=== PATIENT | male | born 1955 | race Caucasian/White ===

== ENCOUNTER 2019-05-29 16:11 | Outpatient (CLI) | payer OTHER, SELFPAY ==
--- NOTE | ~2019-05-29 | XR_ITS ---
EXAMINATION: XR chest 2V EXAM DATE: 05/29/2019 16:32 INDICATION: Cough. Hypertension. TECHNIQUE: Frontal and lateral projections of the chest obtained and reviewed. Comparison is made to prior examination from 12/24/2015. FINDINGS: The lungs are clear. There are no pleural effusions. The cardiomediastinal silhouette is within normal limits. There is no pneumothorax suspected. The bones and soft tissues are unremarkab le. Resolution of previously seen right-sided airspace disease. IMPRESSION: No acute cardiopulmonary findings. Reviewed, dictated and finalized at location B. R SEWING MACHINE OPERATOR
== END 2019-05-29 16:12 | disposition home or self-care (01) ==
LOC: ANHIMG 16:13
PROVIDERS: PCP Family Medicine; Visit Provider Family Medicine
DX: R05 Cough (principal)
CPT/HCPCS: 71046

== ENCOUNTER 2021-05-26 07:38 | Outpatient (CLI) | payer MEDICARE, SELFPAY ==
--- NOTE | ~2021-05-26 | US_ITS ---
EXAMINATION: US [facility] DATE: 05/26/2021 08:26 INDICATION: Abdominal aortic aneurysm screening TECHNIQUE: Grayscale, color Doppler, and pulsed Doppler images of the aorta and common iliac arteries were obtained. COMPARISON: CT abdomen pelvis dated 12/19/2015 FINDINGS: The proximal aorta measures 2.2 cm maximal AP diameter. The mid aorta measures 2.3 cm. Fusiform aneur ysm in the distal aorta which measures up to 3.9 cm in maximal AP diameter. The right common iliac ar luz maria measures 2.2 cm. The left common iliac artery measures 1.6 cm. IMPRESSION: 1. Fusiform infrarenal abdominal aortic aneurysm measuring up to 3.9 cm in maximal diameter. Reviewed, dictated and finalized at location A. RVISOR ENROBING IMPRESSION: 1. Fusiform infrarenal abdominal aortic aneurysm measuring up to 3.9 cm in maxi mal diameter.
--- NOTE | ~2021-05-26 | CT_ITS ---
EXAMINATION: CT lung screening DATE: 05/26/2021 08:05 INDICATION: Personal history of nicotine dependence TECHNIQUE: Computed tomography (CT) of the chest was performed without intravenous contrast. The dose -length product was 187.08 mGy-cm. Automated exposure control and iterative reconstruction technique were employed. COMPARISON: CT dated 03/12/2016 FINDINGS: There is atherosclerosis of the aorta and coronary arteries. Heart size normal. No signific ant pleural or pericardial effusion. There are calcified mediastinal lymph nodes, consistent with chr onic granulomatous disease. There are scattered calcified pulmonary nodules. The upper abdomen is unr emarkable. There is right lower lobe atelectasis/scarring with associated bronchiectasis, improved co mpared with prior CT. There are a few small 1-2 mm nodules in both lungs, not clearly calcified, like ly benign. No endobronchial lesions. No focal airspace disease. Mild thoracic spondylosis. Mild accen tuated thoracic kyphosis. IMPRESSION: 1. Lung-RADS category 2: Benign appearance or behavior. Continue annual screening with noncontrast lo w-dose chest CT in 12 months. Reviewed, dictated and finalized at location B. INE CARTON MARKER IMPRESSION: 1. Lung-RADS category 2: Benign appearance or behavior. Continue annual screeni ng with noncontrast low-dose chest CT in 12 months.
== END 2021-05-26 07:39 | disposition home or self-care (01) ==
LOC: ANHIMG 07:39
PROVIDERS: PCP Family Medicine; Visit Provider Physician Assistant
DX: Z12.2 Encounter for screening for malignant neoplasm of respiratory organs (principal); Z87.891 Personal history of nicotine dependence; Z13.6 Encounter for screening for cardiovascular disorders; I71.4 Abdominal aortic aneurysm, without rupture
CPT/HCPCS: 71271; 76706

== ENCOUNTER → 2021-09-11 14:36 | Outpatient (CLI) | payer MEDICARE, SELFPAY ==
--- NOTE | ~2021-09-11 | XR_ITS ---
EXAMINATION: XR chest 2V 09/11/2021 14:46 INDICATION: Cough PROCEDURE: PA and lateral views of the chest COMPARISON: No prior studies for comparison. FINDINGS: The lungs are clear. The cardiomediastinal silhouette is within normal limits. There are no pleural effusions. There is no pneumothorax suspected. IMPRESSION: 1: NO ACUTE CARDIOPULMONARY DISEASE. Reviewed, dictated and finalized at location B.
== END ==
PROVIDERS: PCP Family Medicine; Visit Provider Family Medicine
DX: R05.9 Cough, unspecified (principal)
CPT/HCPCS: 71046

== ENCOUNTER 2021-09-11 19:13 | Emergency (ER) | payer MEDICARE, SELFPAY ==
--- NOTE | ~2021-09-11 | CT_ITS ---
EXAMINATION: CTA chest PE protocol DATE: 09/11/2021 22:48 INDICATION: Left lower chest wall pain. History of pulmonary embolism 6 years ago. Patient states thi s feels the same as prior pulmonary embolus. TECHNIQUE: Computed tomography angiography (CTA) of the chest was performed with 100 mL Omnipaque-350 intravenous contrast timed to evaluate the pulmonary arteries. Coronal maximum intensity projection 3D-reconstructions were created by the technologist. Automated exposure control and iterative reconst ruction technique were employed. Exam dose: 456.84 mGy-cm total exam DLP. COMPARISON: 09/11/2021 PA and lateral chest 05/26/2021 CT lung screening 12/19/2015 CT pulmonary scan FINDINGS: There is diagnostic contrast enhancement of the pulmonary arteries and no evidence of pulmo nary embolism. No thoracic aortic aneurysm or dissection. Normal heart size. Coronary artery calcifications. No pericardial effusion. No hilar or mediastinal mass lesion or lymphadenopathy. There is chronic discoid scarring in the posterior right lower lobe and minimal atelectasis at the le ft lung base. No pulmonary infiltrate or consolidation or suspicious pulmonary mass lesion. No pleura l effusion. Small sliding hiatal hernia. Prominent degenerative disc disease at C5-6. There is mild degenerative spurring of the thoracic spin e. No suspicious osteolytic or osteoblastic lesions are noted. IMPRESSION: No evidence of pulmonary embolism Reviewed, dictated and finalized at Location A. Reviewed, dictated and finalized at location A.
[2021-09-11 19:28] VITALS: BP 169/92; PULSE 79; RESP 20; TEMP 36.6; O2SAT 97
--- NOTE | 2021-09-11 21:24 | ECG_ITS ---
Measurements Intervals [place] Rate: 66 P: 26 [place]: 177 QRS: -23 QRSD: 94 T: 22 QT: 410 QTc: 430 Interpretive Statements SINUS RHYTHM BORDERLINE LEFT AXIS DEVIATION [QRS AXIS < -20] ABNORMAL EKG NO PREVIOUS ECG AVAILABLE FOR COMPARISON Electronically Signed On 09-12-2021 13:44:09 CDT by Pk Quiles M.D.
[2021-09-11 21:30] VITALS: BP 165/97; PULSE 66; RESP 18; TEMP 36.8; O2SAT 98
--- NOTE | 2021-09-11 21:56 | ED.GENADULT ---
HPI - General Adult General Chief complaint: Unspecified Stated complaint: I think I have a blood clot Time Seen by Provider: 09/11/21 21:17 Source: patient History of Present Illness HPI narrative: Patient presents with left mid back pain. He is concerned that he has a blood clot. Patient reports he had similar symptoms approximately 6 years ago and being diagnosed with a PE was on anticoagulation. Reports a family history of coagulopathy. He thinks maybe he has a factor issue. His current symptoms started yesterday he noted them when blowing his nose and coughing causing a sharp pain on his left mid back. Denies any shortness of breath anterior chest pain denies any pain with deep inspiration reports last time he had a PE he had traveled to [place]. Reports he recently had a trip to [place]. Denies any recent stabilizations or surgeries. Related Data Home Medications Medication Instructions Recorded Confirmed aspirin 81 mg tablet,delayed 81 mg PO DAILY 02/16/19 06/23/21 release Allergies Allergy/AdvReac Type Severity Reaction Status Date / Time No Known Allergies Allergy Verified 09/11/21 19:32 Review of Systems Review of Systems: CONSTITUTIONAL: Denies fever, chills, or sweats. EYES: Denies visual changes, redness, or discharge. ENT: Denies rhinorrhea, congestion, sore throat, or otalgia. CARDIOVASCULAR: Denies chest pain, palpitations, or edema. RESPIRATORY: Denies cough or dyspnea. GASTROINTESTINAL: Denies abdominal pain, nausea, vomiting, or diarrhea. GENITOURINARY: Denies dysuria or hematuria. SKIN: Denies rash or itching. MUSCULOSKELETAL: Denies joint pain, or myalgia. NEUROLOGIC: Denies headache, numbness, dizziness, or weakness. PSYCHIATRIC: Denies anxiety or depression. All systems reviewed & are unremarkable except as noted in HPI and below PMFSH Past Medical History Medical History Abnormal colonoscopy (~07/13/07) Hepatitis C antibody test negative (01/21/17) Inguinal hernia Myocardial infarction (~03/04/05) Normal colonoscopy (~06/04/16) Percutaneous transluminal coronary angioplasty bleed (~03/04/05) Surgical History Surgical History History of hernia repair (~05/05/10) Family History Family History Father Hypertension Family history of elevated blood lipids Family history of coronary artery disease Sibling Family history of malignant neoplasm Grandparent Family history of coronary artery disease Social History Social History Smoking end date: 02/22/14 Alcohol intake: never Exam Narrative: GENERAL: Well-appearing, well-nourished, and in no acute distress. HEAD: Normocephalic, atraumatic. EYES: PERRLA and EOMI. ENT: Nares clear, no rhinorrhea or epistaxis. Mucous membranes moist. NECK: Supple. No masses. No JVD CHEST: Clear to auscultation. No respiratory distress. No wheezes rales or rhonchi HEART: Regular rate and rhythm. No murmur heard. Normal peripheral pulses. ABDOMEN: Soft, nontender, nondistended, normal active bowel sounds. EXTREMITIES: Normal range of motion. No edema. SKIN: Warm, dry, no rash. NEURO: No focal deficits. Alert and oriented x3. PSYCH: Normal mood and affect. Course Reevaluation(s) Reevaluation #1: Patient resting comfortably results and plan reviewed with patient. Patient is comfortable with outpatient plan. Date: 09/11/21 Time: 23:36 Vital Signs Vital signs: Vital Signs Temperature 36.6 C 09/11/21 19:28 Pulse Rate 79 09/11/21 19:28 Respiratory Rate 20 09/11/21 19:28 Blood Pressure 169/92 H 09/11/21 19:28 Pulse Oximetry 97 09/11/21 19:28 Oxygen Delivery Room Air 09/11/21 19:28 Temperature 36.8 C 09/11/21 21:30 Pulse Rate 65 09/11/21 23:49 Respiratory Rate 20 09/11/21 23:49 Blo
[2021-09-11 22:00] VITALS: BP 132/92; PULSE 66; RESP 16; O2SAT 97
[2021-09-11 22:06] LABS: Basophils Percent Auto 0.4 % (0.2-1.2); Eosinophils Percent Auto 0.2 % (0-4.4); Hematocrit 50.5 % (42.0-52.0); Hemoglobin 16.7 g/dL (14.0-18.0); Immature Granulocyte Absolute 0.02 K/mm3 (0.00-0.031); Immature Granulocyte Percent A 0.4 % (0-0.5); Lymphocytes Absolute Auto 0.75 K/mm3 (0.9-3.2); Mean Corpuscular HGB Conc 33.1 g/dl (32-36); Mean Corpuscular Hemoglobin 29.8 pg (26-34); Mean Platelet Volume 9.8 fl (7.4-10.4); Monocytes Absolute Auto 0.1 K/mm3 (0.1-0.6); Monocytes Percent Auto 2.2 % (2.6-8.5); Neutrophils Absolute Auto 4.4 K/mm3 (1.3-6.7); Neutrophils Percent Auto 82.8 % (45.5-73.1); Platelet Count Result 218 k/mm3 (150-375); Red Blood Count 5.61 M/mm3 (4.6-6.20); Red Cell Distribution Width 12.7 % (11.5-14.5); White Blood Count 5.3 K/mm3 (4.5-10.0)
[2021-09-11 22:16] LABS: Alanine Aminotransferase 25 U/L (6-50); Albumin Level 4.3 g/dL (3.5-5.1); Alkaline Phosphatase 89 U/L (38-126); Anion Gap 8 mmol/L (8-16); Aspartate Amino Transferase 30 U/L (17-59); Bilirubin,Total 0.9 mg/dL (0.2-1.3); Blood Urea Nitrogen 9 mg/dL (9-20); Calcium 8.9 mg/dL (8.4-10.2); Carbon Dioxide 24 mmol/L (22-30); Chloride 105 mmol/L (98-107); Estimated Glomerular Filt Rate > 60; Glucose 145 mg/dL (65-110); Potassium 4.5 mmol/L (3.4-5.0); Sodium 137 mmol/L (137-145)
[2021-09-11 22:27] LABS: NT Pro B Type Natriuretic Pept 144 pg/mL (5-100); Troponin I < 0.012 ng/mL (0.000-0.034)
[2021-09-11 23:01] VITALS: BP 133/79; PULSE 60; RESP 16; O2SAT 97
[2021-09-11 23:49] VITALS: BP 146/87; PULSE 65; RESP 20; O2SAT 96
== END 2021-09-11 23:49 | disposition home or self-care (01) ==
PROVIDERS: Emergency Provider Emergency Medicine; PCP Family Medicine
DX: M54.6 Pain in thoracic spine (principal); R05.9 Cough, unspecified; Z79.82 Long term (current) use of aspirin; I25.2 Old myocardial infarction; Z86.711 Personal history of pulmonary embolism; Z87.891 Personal history of nicotine dependence; R94.31 Abnormal electrocardiogram [ECG] [EKG]
CPT/HCPCS: 36415; 71046; 71275; 80053; 83880; 84484; 85025; 93005; 99284; Q9967

== ENCOUNTER → 2022-06-11 08:05 | Outpatient (CLI) | payer MEDICARE, SELFPAY ==
--- NOTE | ~2022-06-11 | CT_ITS ---
CT Scan of the Chest without Contrast: Clinical Indication: Lung cancer screening, smoking history Technique: Contiguous sections were acquired throughout the chest without intravenous contrast. Dose reduction technique was used on this scan by utilizing automated exposure control and iterative recon struction technique. The dose-length product (DLP) was 164.05 mGy-cm. COMPARISON: 09/11/2021, 03/12/2016 Findings: There is no evidence of any significant mediastinal, hilar or axillary lymphadenopathy. Small calcifi ed mediastinal lymph nodes are present. There are atherosclerotic calcifications of the aorta. Herring ry artery calcifications are present. There is no evidence of pleural or pericardial effusion. Several small calcified granulomas are noted. Right lower lobe probably scarring is unchanged. Images through the upper abdomen reveal no abnormalities. Impression: Lung-RADS 2: Benign appearance. 12 month follow-up screening CT recommended. Reviewed, dictated and finalized at [facility]. CONCILIATOR Impression: Lung-RADS 2: Benign appearance. 12 month follow-up screening CT recommended.
== END ==
PROVIDERS: PCP Family Medicine; Visit Provider Nurse Practitioner
DX: Z12.2 Encounter for screening for malignant neoplasm of respiratory organs (principal); Z87.891 Personal history of nicotine dependence
CPT/HCPCS: 71271

== ENCOUNTER 2022-08-05 14:29 | Outpatient (CLI) | payer MEDICARE, SELFPAY ==
--- NOTE | 2022-08-05 17:11 | WPDPFTINT ---
PFT Procedure Performed PFT Procedure Performed Spirometry with Pre/Post Bronchodilator Plethysmography (Lung Vol) Diffusing Cap (DLCO) Flow Vol Loop PFT Interpretation This is a pulmonary function test with pre and post-bronchodilator spirometry, plethysmography and diffusing capacity. The test was performed and results interpreted in accordance with the 2019 and 2005 ATS/ERS Task Force guidelines respectively using the Global Lung Function Initiative-2012 reference equations. Patient demonstrated good effort and cooperation. Reproducibility criteria were met. The quality of the pre bronchodilator spirometry maneuver was Grade B and post bronchodilator spirometry maneuver was Grade B. Findings: Spirometry: There is decreased maximal expiratory airflow at all lung volumes with concave expiratory flow tracing. The contour the inspiratory flow tracing is normal. The pre bronchodilator FVC is 4.79 L, 95% predicted. The pre bronchodilator FEV1 is 2.82 L, 74% predicted. The pre bronchodilator FEV1: FVC ratio is 59%. The post bronchodilator FVC is 4.87 L, representing a 2% increase. The post bronchodilator FEV1 is 2.72 L, representing a 3% increase decrease. The post bronchodilator FEV1: FVC ratio is 56%. Plethysmography: The total lung capacity is 9.42 L, 120% predicted. The functional residual capacity is 4.89 L, 117% predicted. The residual volume is 4.62 L, 179% predicted. Diffusing capacity: The diffusing capacity unadjusted for hemoglobin and carboxyhemoglobin is 22.1, 77% predicted. The diffusing capacity adjusted for alveolar volume is 3.23, 84% predicted. Impression: There is a mild obstructive abnormality with a normal FEV1 and without significant improvement after inhaling a single dose of albuterol. The increase in residual volume is consistent with air trapping from an obstructive abnormality. Hyperinflation is present as demonstrated by the increase in total lung capacity and is consistent with an obstructive abnormality. The diffusing capacity is normal. There are no prior studies for comparison
== END 2022-08-05 14:30 | disposition home or self-care (01) ==
LOC: ANHPFT 14:31
PROVIDERS: PCP Family Medicine; Visit Provider Physician Assistant
DX: R05.9 Cough, unspecified (principal); R94.2 Abnormal results of pulmonary function studies
CPT/HCPCS: 94060; 94726; 94729

== ENCOUNTER 2023-02-22 08:52 | Outpatient (CLI) | payer MEDICARE, SELFPAY | END 2023-02-22 08:53 | disposition home or self-care (01) | LOC: ANHAUDIO 08:53 | PROVIDERS: PCP Family Medicine; Visit Provider Nurse Practitioner | DX: H90.3 Sensorineural hearing loss, bilateral (principal) | CPT/HCPCS: 92557; 92567 ==

== ENCOUNTER 2023-06-15 13:26 | Outpatient (CLI) | payer MEDICARE, SELFPAY ==
--- NOTE | ~2023-06-15 | CT_ITS ---
EXAMINATION:CT lung screening DATE: 06/15/2023 13:43 INDICATION: Personal history of nicotine dependence. Current smoker with 40 pack year history. TECHNIQUE: Computed tomography (CT) of the chest was performed without intravenous contrast. Automate d exposure control and iterative reconstruction technique were employed. The dose-length product (DLP ) was 140.56 mGy-cm. COMPARISON: Chest CT 06/11/2022 FINDINGS: There is chronic mild scarring at the lung apices. There is mild peripheral scarring in rig ht lower lobe. There is mild atelectasis bilaterally. Calcified lung nodules and calcified hilar and mediastinal lymph nodes are consistent with old granulomatous disease. No pleural effusion. The heart size is normal. There are coronary artery calcifications. There are calcifications of aortic valve. No pericardial effusion. There is ectasia of ascending aorta measuring 4.0 cm. There are calcificatio ns in the liver and spleen, consistent with old granulomatous disease. There is mild thoracic spondyl osis and severe cervical spondylosis. IMPRESSION: 1. Lung-RADS category 2: Benign appearance or behavior. Continue annual screening with noncontrast lo w-dose chest CT in 12 months. Reviewed, dictated and finalized at location A. IMPRESSION: 1. Lung-RADS category 2: Benign appearance or behavior. Continue annual screeni ng with noncontrast low-dose chest CT in 12 months.
== END 2023-06-15 13:27 | disposition home or self-care (01) ==
LOC: ANHIMG 13:29
PROVIDERS: PCP Family Medicine; Visit Provider Physician Assistant
DX: Z12.2 Encounter for screening for malignant neoplasm of respiratory organs (principal); Z87.891 Personal history of nicotine dependence
CPT/HCPCS: 71271

== ENCOUNTER 2024-04-05 08:38 | Outpatient (CLI) | payer MEDICARE, SELFPAY ==
--- NOTE | ~2024-04-05 | US_ITS ---
EXAM: ABDOMINAL AORTIC ULTRASOUND HISTORY: I71.40 - Abdominal aortic aneurysm, without rupture, unsp... COMPARISON: 05/26/2021 FINDINGS: MID ABDOMINAL AORTA (cm): 2.6 x 2.6 x 2.4 (compared with 2.0 x 2.5 x 2.3). DISTAL ABDOMINAL AORTA (cm): 4.1 x 3.5 x 3.9 (compared with 3.4 x 3.0 x 3.9). DIAMETER OF THE RIGHT PROXIMAL COMMON ILIAC ARTERY (cm): 2.0 x 2.2 x 2.5 (compared with 2.4 x 2.3 x 2 .3). DIAMETER OF THE LEFT PROXIMAL COMMON ILIAC ARTERY (cm): 2.0 x 1.7 x 1.5 (compared with 2.0 x 1.9 x 1. 6). IMPRESSION: Infrarenal abdominal aortic aneurysm increased in size from 2021 measuring 4.1 cm in maximal dimensio n for which 12 month follow-up is recommended according to the Society for vascular surgery (updated 2023May 31). Aneurysmal dilatation of the right common iliac artery is also noted, measuring 2.5 cm in greatest di mension. Reviewed, dictated and finalized at location A. O STATION SUPERVISOR IMPRESSION: Infrarenal abdominal aortic aneurysm increased in size from 2021 measuring 4.1 cm in maximal dimension for which 12 month follow-up is recommended according t o the Society for vascular surgery (updated 2023May 31). Aneurysmal dilatation of the right common iliac artery is also noted, measuring 2.5 cm in greatest dimension.
== END 2024-04-05 08:39 | disposition home or self-care (01) ==
LOC: GOSHIMG 08:39
PROVIDERS: PCP Family Medicine; Visit Provider Family Medicine
DX: I71.43 Infrarenal abdominal aortic aneurysm, without rupture (principal); I72.3 Aneurysm of iliac artery
CPT/HCPCS: 76775

== ENCOUNTER 2024-05-03 08:29 | Outpatient (CLI) | payer MEDICARE, SELFPAY ==
--- OUTSIDE RECORDS SUMMARY | 2024-05-03 08:45 | XMS_ITS | Clinical Summary ---
Author Organization [facility] Address [address] [place] [address] Care Team Providers Care Medical Insurance Coder Name Role Phone Mauri Tripp MD Primary Care Provider [phone] Source Comments [facility],non-owned Affiliates and Associated Physician Practices is amultiple site organization consisting of ambulatory clinics and hospital sitesin [place], [place], [place] and [place]. This disclosure is being madepursuant to the Care Everywhere program and may not contain all information available regarding this patient. Last updated 17.[facility] Allergies No known active allergies Medications * Be aware that medications may not be up to date on this document. Alwaysverify current medications with the patient. Medication Sig Dispensed Refills Start Date End Date Status lovastatin (MEVACOR) 20 MG tablet Take 20 mg by mouth at bedtime 12/01/2017 Active fluticasone propionate (FLONASE) 50 MCG/ACT nasal spray Pandora 1 spray into each nostril once daily as needed 10/07/2017 Active Aspirin 81 MG Take 81 mg by mouth at bedtime Active metoprolol succinate XL 24hr (TOPROL XL) 50 MG tablet Take 50 mg by mouth once daily Active calcium carbonate (TUMS) 500 MG chew tablet Take 1 tablet by mouth daily with food As needed Active RaNITidine HCl (ZANTAC PO) Take by mouth 2 times daily Active Active Problems Problem Noted Date Diagnosed Date Stopped smoking with greater than 40 pack year h istory 12/12/2017 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 Social History Tobacco Use Types Packs/Day Years Used Date Smoking Tobacco: Former Cigarettes 1 40 1 974 - 2014 Smokeless Tobacco: Current Comments:vaps occassionally Alcohol Use Standard Drinks/Week Comments No 0 (1 standard drink = 0.6 oz pur e alcohol) Sex and Gender Information Value Date Recorded Sex Assigned at Not on file Gender Identity Not on file Sexual Orientation Not on file Last Filed Vital Signs Vital Sign Reading Time Taken Comments Blood Pressure 165/104 01/06/2018 8:40 AM CDT Pulse 68 01/06/2018 8:40 AM CDT Temperature 36.7 ??C (98.1 ??F) 01/03/2018 1:00 PM CD T Respiratory Rate 16 01/03/2018 1:30 PM CDT Oxygen Saturation 98% 01/03/2018 1:30 PM CDT Inhaled Oxygen Concentration 21% 01/03/2018 1 :30 PM CDT Weight 98.4 kg (217 lb) 01/06/2018 8:40 AM CDT Height 188 cm (6' 2 ) 01/06/2018 8:40 AM CDT Body Mass Index 27.86 01/06/2018 8:40 AM CDT Plan of Treatment Health Maintenance Due Date Last Done Comments COLOGUARD (AGES 45-75) - COL ON CA SCREENING 1956 COLON MONITORING 1956 COLONOSCOPY - COLON CA SCREENING 1956 CT COLONOGRAPHY - COLON CA SCREENING 1956 Colorectal Cancer Screening 1956 FIT - COLON CA SCREENING 1956 FLEX SIG - COLON CA SCREENING 1956 HEPATITIS C SCREENING 03/18/1974 DTAP/TDAP/TD VACCINES (1 - Tdap) 1975 LUNG CANCER SCREENING 2006 PNEUMOCOCCAL VACCINE 50+ (1 of 1 - PCV) 2006 ZOSTER VACCINE (1 of 2) 2006 SCREENING FOR DIABETES 01/03/2021 01/03/2018 AAA SCREENING 2021 COVID-19 VACCINE (1 - 2023-2 5 season) 2023 INFLUENZA VACCINE (#1) 2023 DEPRESSION SCREENING 04/04/2024 Respiratory Syncytial Virus (RSV) Vaccine Pt: or over 60 yrs (1 - 1-dose 75+ series) 2031 HEPATITIS B VACCINE Aged Out No longe r eligible based on patient's age to complete this topic HIB VACCINE Aged Out No longer eligi ble based on patient's age to complete this topic HPV VACCINE Aged Out No longer eligi ble based on patient's age to complete this topic MENINGOCOCCAL (Group B) VACCINE Aged Out No longer eligible based on patient's age to complete this topic MENINGOCOCCAL VACCINE Aged Out No ene ken eligible based on patient's age to complete this topic Procedures Procedure Name Priority Date/Time Associated Diagnosis Comments BASIC METABOLIC PANEL (CALCIUM TOTAL) STAT 01/03/2018 7:42 AM CDT Pleomorphic adenoma of parotid gland from Last 3 Months or Most Recently Relevant to Health Maintenance Results * BASIC METABOLIC PANEL (CALCIUM TOTAL) (01/03/2018 7:42 AM CDT) BUN 8 7 - 26 mg/dL 01/03/2018 8:20 AM [facility] Creatinine 1.2 0.6 - 1.2 mg/dL 01/03/2018 8:20 AM [facility] Sodium 140 136 - 145 mmol/L 01/03/2018 8:20 AM [facility] Potassium 4.1 3.5 - 4.5 mmol/L 01/03/2018 8:20 AM [facility] Chloride 106 98 - 107 mmol/L 01/03/2018 8:20 AM [facility] CO2 24 22 - 29 mmol/L 01/03/2018 8:20 AM [facility] Glucose 94 70 - 115 mg/dL 01/03/2018 8:20 AM [facility] Calcium 9.5 8.4 - 10.2 mg/dL 01/03/2018 8:20 AM [facility] Anion Gap 14 8 - 18 01/03/2018 8:20 AM [facility] BUN/Creatinine Ratio 7 7 - 23 01/03/2018 8:20 AM [facility] Osmolality Calculated 288 270 - 300 mOsm/kg 01/03/2018 8:20 AM [facility] eGFR >60 >60 mL/min/1.7 3 m2 01/03/2018 8:20 AM [facility] Blood BLOOD SPECIMEN / Unknown Venipuncture / Unknown 01/03/2018 7:42 AM CDT 01/03/2018 8:00 AM CDT Russell Gleason DO LAB - CHEMISTRY ORDERABLES [facility] [address] [place] [address] from Last 3 Months or Most Recently Relevant to Health Maintenance Advance Directives * Full Code (Latest Code Status on File) Date Activated Date Inactivated Comments 01/03/2018 7:14 AM 01/03/2018 3:00 PM Care Teams Medical Insurance Coder Relationship Specialty Start Date End Date Mauri Tripp MD [address] [place] [address] PCP - General Family Medicine 11/11/16
--- OUTSIDE RECORDS SUMMARY | 2024-05-03 08:45 | XMS_ITS | Continuity of Care Document ---
Author Organization [facility] Address [address] [place] [address] [address] [place] [address] Phone Care Team Providers Care Supervising Librarian Name Role Phone Pat Corrales Unavailable Unavailable Advance Directives Directive Yes / No Effective Date File Name No Information Encounters Encounter Description Practice Location Reason(s) For Visit Diagnoses Date Provider Providers Copied on Encounter [facility], [id number] [place] [address] [address], [place], [place], [id number], [place] tel:[phone] [facility] No Information Diogo-0 [phone] Savanna Stewart. [address] , [address], [place], [address], [place]. tel:[phone] Family History Family Member Type Diagnosis Age At Onset No Information Payers Payer name Insurance type Covered democrat ID Authoriza tion(s) No Information Social History Type Description Quantity Date Captured Comments Sex Male Smoking Status No Information Chief Complaint And Reason For Visit No Information Reason For Referral Reason For Referral No Information History Of Present Illness Encounter Date Complaint History Of Prese nt Illness No Information Functional Status Date Functional Assessmen t No Information Instructions Date Instruction Additional Infor mation No Information Assessments Type Assessment Date No Information Patient Care Teams Name Effective Dates (start - stop) Status Members No Information
--- OUTSIDE RECORDS SUMMARY | 2024-05-03 08:45 | XMS_ITS | Patient Health Summary ---
Author Organization [facility] Address [address] [place] [address] Care Team Providers Care Products Mechanical Design Engineer Name Role Phone Mauri Tripp MD Primary Care Provider [phone] Note from [facility],non-owned Affiliates and Associated Physician Practices is amultiple site organization consisting of ambulatory clinics and hospital sitesin [place], [place], [place] and [place]. This disclosure is being madepursuant to the Care Everywhere program and may not contain all information available regarding this patient. Last updated 17.[facility] Allergies No known active allergies Medications * Be aware that medications may not be up to date on this document. Alwaysverify current medications with the patient. * lovastatin (MEVACOR) 20 MG tablet(Started 12/01/2017) Take 20 mg by mouth at bedtime * fluticasone propionate (FLONASE) 50 MCG/ACT nasal spray(Started 10/07/2017) [place] 1 spray into each nostril once daily as needed * Aspirin 81 MG Take 81 mg by mouth at bedtime * metoprolol succinate XL 24hr (TOPROL XL) 50 MG tablet Take 50 mg by mouth once daily * calcium carbonate (TUMS) 500 MG chew tablet Take 1 tablet by mouth daily with food As needed * RaNITidine HCl (ZANTAC PO) Take by mouth 2 times daily Active Problems Problem Noted Date Diagnosed Date Stopped smoking with greater than 40 pack year h istory 12/12/2017 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 Social History Tobacco Use Types Packs/Day Years Used Date Smoking Tobacco: Former Cigarettes 1 40 1 974 - 2013 Smokeless Tobacco: Current Comments:vaps occassionally Alcohol Use [...] Mass Index 27.86 01/06/2018 8:40 AM CDT Procedures * PATHOLOGY TISSUE(Performed 01/03/2018) Performed for Parotid mass * PAROTIDECTOMY(Performed 01/03/2018) Performed for Parotid mass * ENDOTRACHEAL TUBE NOTE(Performed 01/03/2018) * TYPE + SCREEN PANEL(Performed 01/03/2018) * BASIC METABOLIC PANEL (CALCIUM TOTAL)(Performed 01/03/2018) Performed for Pleomorphic adenoma of parotid gland * PATHOLOGY TISSUE(Performed 10/31/2017) Performed for Parotid mass * ED LACERATION REPAIR(Performed 11/12/2016) Performed for Forearm laceration, right, initial encounter * ED LACERATION REPAIR(Performed 11/12/2016) Performed for Forearm laceration, right, initial encounter Results * PATHOLOGY TISSUE (01/03/2018 10:13 AM CDT) Only the most recent of2 resultswithin the time period is included. Case Report Surgical Pathology Report ? Case: [id number] ? Authorizing Provider: ??Andrea Lincoln MD ?Collected: ? 01/03/2018 10:13 AM ? Ordering Location: ? [facility] ? Received: ?01/03/2018 12:29 PM ? Pathologist: ? Brinda France MD ? Specimen: ?Salivary Gland, Right parotid-Ink not ture margin ? 01/06/2018 6:50 PM [facility] Final Diagnosis Parotid, right, superficial parotidectomy (A): - Pleomorphic adenoma, cellular type; margins free of tumor (tumor is less than 0.5 mm from margin) 01/06/2018 6:50 PM [facility] Microscopic Description and Comment This is a pleomorphic adenoma that is markedly cellular in 90% of tumor volume and has scattered peripherally located myxoid areas in 10% of tumor volume. The inked margins are free of tumor. Tumor comes to within 0.2 mm of the margin focally but is surrounded by delicate fibrous capsule. There is central scarring within the mass, compatible with previous fine needle aspiration. The tumor measures 1. 5 cm in greatest dimension on the slide. No perineural invasion is seen. Non-neoplastic parotid is unremarkable. 01/06/2018 6:50 PM [facility] Clinical History The patient is a 62-year-old man with a parotid mass. Operative procedure: Right superficial parotidectomy with FNM. 01/06/2018 6:50 PM [facility] Gross Description The requisition and specimen(s) are identified with the patient name, Stewart France Received fresh, specimen A, right parotid , are one unoriented firm, hernandez-brown tissue fragment measuring 2 x 1.5 x 1.0 cm and one unoriented soft, hernandez-brown tissue fragment measuring 1.1 x 0.9 x 0.6 cm, together weighing 1.8 g. Per the surgeon's note, one 0.4 x 0.4 cm protrusion from the larger specimen is a false margin, which was expressed iatrogenically; this was inked black by surgery and was re-inked blue upon receipt in pathology; the remainder of the specimen is inked black. The specimen is serially sectioned, revealing soft, pale hernandez parenchyma. The specimen is submitted entirely in cassettes A1-A3 (smaller fragment in cassette A3). AM[facility]/met 01/06/2018 6:50 PM CDT [facility] Disclaimer The performance characteristics of all immunohistochemical and indirect immunofluorescence stains (if any) cited in this report were determined by the Histopathology Laboratory of [facility]. Some of these tests were developed by our own laboratory and have not been cleared or approved by the US Food and Drug Administration. The FDA does not require this test to go through premarket FDA review. These tests are used for clinical purposes. They should not be regarded as investigational or for research. This laboratory is certified under the Clinical Laboratory Improvement Amendments (CLIA) as qualified to perform high complexity clinical laboratory testing. This case has been personally reviewed and interpreted by the attending (teaching) pathologist. 01/06/2018 6:50 PM CDT [facility] Embedded Images 01/06/2018 6:50 PM CDT [facility] Biopsy, Excision ENTIRE SALIVARY GLAND / Unknown 01/03/2018 10:13 AM CDT 01/03/2018 12:29 PM CDT Andrea Lincoln MD LAB - PATHOLOGY/CYTO LOGY ORDERABLES [facility] [address] [place], [place] [id number] [place] [address] * TYPE + SCREEN PANEL (01/03/2018 7:42 AM CDT) Antibody Screen NEG 8 8:55 AM CDT [facility] ABO Rh O POS 01/03/2018 8:55 AM T [facility] Blood Bank BLOOD SPECIMEN / Unknown Venipuncture / Unknown 01/03/2018 7:42 AM CDT 01/03/2018 8:11 AM CDT Emilie Paiz MD LAB - BLOOD BANK ORD ERABLES [facility] [address] * BASIC METABOLIC PANEL (CALCIUM TOTAL) (01/03/2018 7:42 AM CDT) BUN 8 7 - 26 mg/dL 01/03/2018 8:20 AM [facility] Creatinine 1.2 0.6 - 1.2 mg/dL 01/03/2018 8:20 AM [facility] Sodium 140 136 - 145 mmol/L 01/03/2018 8:20 AM [facility] Potassium 4.1 3.5 - 4.5 mmol/L 01/03/2018 8:20 AM [facility] Chloride 106 98 - 107 mmol/L 01/03/2018 8:20 AM [facility] CO2 24 22 - 29 mmol/L 01/03/2018 8:20 AM [facility] Glucose 94 70 - 115 mg/dL 01/03/2018 8:20 AM [facility] Calcium 9.5 8.4 - 10.2 mg/dL 01/03/2018 8:20 AM [facility] Anion Gap 14 8 - 18 01/03/2018 8:20 AM [facility] BUN/Creatinine Ratio 7 7 - 23 01/03/2018 8:20 AM [facility] Osmolality Calculated 288 270 - 300 mOsm/kg 01/03/2018 8:20 AM [facility] eGFR >60 >60 mL/min/1.7 3 m2 01/03/2018 8:20 AM [facility] Blood BLOOD SPECIMEN / Unknown Venipuncture / Unknown 01/03/2018 7:42 AM CDT 01/03/2018 8:00 AM CDT Russell Gleason DO LAB - CHEMISTRY ORDERABLES [place] [id number] [phone] * ED LACERATION REPAIR (11/12/2016 9:02 AM CDT) Bhavesh Shaw MD - 11/12/2016 9:02 AM CDT Farheen Cerrato APRN-CNP ? 11/11/2016 11:15 AM Laceration Repair Date/Time: 11/11/2016 11:13 AM Performed by: FARHEEN CERRATO Authorized by: FARHEEN CERRATO Consent: Verbal consent obtained. Risks and benefits: risks, benefits and alternatives were discussed Consent given by: patient Patient understanding: patient states understanding of the procedure being performed Patient identity confirmed: verbally with patient and arm band Time out: Immediately prior to procedure a time out was called to verify the correct patient, procedure, equipment, marketing support specialist and site/side marked as required. Body area: upper extremity Location details: right hand Laceration length: 1.5 cm Tendon involvement: none Nerve involvement: none Vascular damage: no Anesthesia: Local Anesthetic: lidocaine 1% with epinephrine Sedation: Patient sedated: no Irrigation solution: saline Irrigation method: syringe Amount of cleaning: standard Debridement: none Skin closure: glue Patient tolerance: Patient tolerated the procedure well with no immediate complications Farheen TORRES PROCEDURE/MINOR SURGICAL ORDERABLES * ED LACERATION REPAIR (11/12/2016 9:02 AM CDT) Bhavesh Shaw MD - 11/12/2016 9:02 AM CDT Farheen Cerrato APRN-CNP ? 11/11/2016 11:15 AM Laceration Repair Date/Time: 11/11/2016 11:12 AM Performed by: FARHEEN CERRATO Authorized by: FARHEEN CERRATO Consent: Verbal consent obtained. Risks and benefits: risks, benefits and alternatives were discussed Consent given by: patient Patient understanding: patient states understanding of the procedure being performed Patient consent: the patient's understanding of the procedure matches consent given Patient identity confirmed: verbally with patient and arm band Body area: upper extremity Laceration length: 6 cm Tendon involvement: none Vascular damage: no Anesthesia: local infiltration Anesthesia: Local Anesthetic: lidocaine 1% with epinephrine Anesthetic total: 7 mL Sedation: Patient sedated: no Irrigation solution: saline Irrigation method: syringe Amount of cleaning: extensive Debridement: none Degree of undermining: none Skin closure: 4-0 Prolene Number of sutures: 10 Technique: simple Approximation: close Approximation difficulty: simple Dressing: antibiotic ointment Patient tolerance: Patient tolerated the procedure well with no immediate complications Farheen Jerez Blossom [employer] PROC[employer]URE/MINOR SURGICAL ORDERABLES Care Teams Products Mechanical Design Engineer Relationship Specialty Start Date End Date Mauri Tripp MD [address] [place] [address] PCP - General Family Medicine 11/11/16
--- OUTSIDE RECORDS SUMMARY | 2024-05-03 08:45 | XMS_ITS | Referral Summary ---
Author Organization [facility] Address [address] [place] [address] Care Team Providers Care Psychologists Name Role Phone Mauri Tripp MD Primary Care Provider [phone] Source Comments [facility],non-owned Affiliates and Associated Physician Practices is amultiple site organization consisting of ambulatory clinics and hospital sitesin [place], [place], [place] and [place]. This disclosure is being madepursuant to the Care Everywhere program and may not contain all information available regarding this patient. Last updated 17.[facility] Allergies No known active allergies Medications * Be aware that medications may not be up to date on this document. Alwaysverify current medications with the patient. Medication Sig Dispensed Refills Start Date End Date Status lovastatin (MEVACOR) 20 MG tablet Take 20 mg by mouth at bedtime 12/01/2017 Active fluticasone propionate (FLONASE) 50 MCG/ACT nasal spray [place] 1 spray into each nostril once daily [...] Mass Index 27.86 01/06/2018 8:40 AM CDT Functional Status Functional Status Response Date of Assess ment Is person deaf or have serious hearing difficult y? No 01/03/2018 Is person blind or have serious difficulty seein g? No 01/03/2018 Does person have serious dif ficulty walking/climbing stairs? No 01/03/2018 Does person have difficulty dressing/bathing? No 01/03/2018 Does person have difficulty doing errands alone? No 01/03/2018 Cognitive Status Response Date of Assessm ent Does person have difficulty concentrating/remembering/making decisions? No 01/03/2018 Plan of Treatment Not on file Procedures Procedure Name Priority Date/Time Associated Diagnosis Comments BASIC METABOLIC PANEL (CALCIUM TOTAL) STAT 01/03/2018 7:42 AM CDT Pleomorphic adenoma of parotid gland from Last 3 Months or Most Recently Relevant to Health Maintenance Results * BASIC METABOLIC PANEL (CALCIUM TOTAL) (01/03/2018 7:42 AM CDT) BUN 8 7 - 26 mg/dL 01/03/2018 8:20 AM CDT [facility] Creatinine 1.2 0.6 - 1.2 mg/dL 01/03/2018 8:20 AM [facility] Sodium 140 136 - 145 mmol/L 01/03/2018 8:20 AM [facility] Potassium 4.1 3.5 - 4.5 mmol/L 01/03/2018 8:20 AM [facility] Chloride 106 98 - 107 mmol/L 01/03/2018 8:20 AM [facility] CO2 24 22 - 29 mmol/L 01/03/2018 8:20 AM [facility] Glucose 94 70 - 115 mg/dL 01/03/2018 8:20 AM [facility] Calcium 9.5 8.4 - 10.2 mg/dL 01/03/2018 8:20 AM [facility] Anion Gap 14 8 - 18 01/03/2018 8:20 AM [facility] BUN/Creatinine Ratio 7 7 - 23 01/03/2018 8:20 AM [facility] Osmolality Calculated 288 270 - 300 mOsm/kg 01/03/2018 8:20 AM [facility] eGFR >60 >60 mL/min/1.7 3 m2 01/03/2018 8:20 AM [facility] Blood BLOOD SPECIMEN / Unknown Venipuncture / Unknown 01/03/2018 7:42 AM CDT 01/03/2018 8:[address] [facility] Russell Gleason DO LAB - CHEMISTRY ORDERABLES Performing Organization Address [facility]/State/[facility] Co de Phone Number [facility] [address] [place] [address] from Last 3 Months or Most Recently Relevant to Health Maintenance Advance Directives * Full Code (Latest Code Status on File) Date Activated Date Inactivated Comments 01/03/2018 7:14 AM 01/03/2018 3:00 PM Care Teams Psychologists Relationship Specialty Start Date End Date Mauri Tripp MD [address] [place] [id number] PCP - General Family Medicine 11/11/16
--- OUTSIDE RECORDS SUMMARY | 2024-05-03 08:46 | XMS_ITS | Clinical Summary ---
Author Organization [facility] Address [address] [place] [address] Phone Care Team Providers Care Set O Type Operator Name Role Phone Mauri Tripp MD Primary Care Provider [phone] Allergies No known active allergies Medications metoprolol Succinate (TOPROL XL) 50 MG TABLET SR 24 HR Take 50 mg by mouth daily. Active Lovastatin 10 MG Tablet Take 10 mg by mouth daily. Active DUEXIS 800-26.6 MG Tablet TAKE ONE TABLET BY MOUTH THREE TIMES A DAY 3 8 Active Benzonatate 200 MG Capsule 8 Active rivaroxaban (XARELTO) 10 MG Tablet Take by mouth. Activ e aspirin EC 81 MG Tablet Delayed Response Take 81 mg by mouth daily. Active Azelastine HCl 0.15 % SolutionIndicat ions:PNAR (perennial non-allergic rhinitis),Hyper trophy of inferior nasal turbinate 2 sprays in each nostril BID 1 Inhaler 11 8 Active Additional Information Patient not taking.Reported on 12/01/2017 guaifenesin CR (MUCINEX MAXIMUM STRENGTH) 1200 MG TABLET SR 12 HRIndications:P DIDI (perennial non-allergic rhinitis),Hyper trophy of inferior nasal turbinate 1 tablet by mouth twice a day if needed for thick mucus. Take with a full glass of water 28 Tab 8 Active Additional Information Patient not taking.Reported on 12/01/2017 predniSONE (DELTASONE) 10 MG Tablet Take 30 mg by mouth daily. Taper dose pack Active raNITIdine (ZANTAC) 150 MG Tablet Take 1 Tab by mouth 2 times daily. 180 Tab 8 Active Active Problems Problem Noted Date Diagnosed Date Pleomorphic adenoma of parotid gland 11/11/2017 PNAR (perennial non-allergic rhinitis) 8 DNS (deviated nasal septum) 10/07/2017 Hypertrophy of inferior nasal turbinate 10/08/19 18 Nasal polyps 10/07/2017 Pachyderma of larynx 10/07/2017 Laryngopharyngeal reflux 10/07/2017 Gastroesophageal reflux disease 10/07/2017 History of pulmonary embolism 03/10/2017 Factor V Leiden carrier 08/26/2016 Resolved Problems Problem Noted Date Diagnosed Date Resolved Date Pulmonary embolism 08/26/2016 7 Lupus anticoagulant positive 08/26/2016 12/30/2017 Family History Medical History Relation Name Comments Leukemia/Lymphoma Brother Clotting Disorder Mother Hypertension Mother Relation Name Status Comments Brother Father Mother Alive Social History Tobacco Use Types Packs/Day Years Used Date Smoking Tobacco: Former Cigarettes 1 40 Smokeless Tobacco: Never Alcohol Use Standard Drinks/Week Comments No 0 (1 standard drink = 0.6 oz pur e alcohol) Sex and Gender Information Value Date Recorded Sex Assigned at Not on file Legal Sex Male 11:57 AM CDT Gender Identity Not on file Sexual Orientation Not on file 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 on file Not on file Not on file Last Filed Vital Signs Vital Sign Reading Time Taken Comments Blood Pressure 141/92 12/19/2017 12:19 PM CDT Pulse 58 12/19/2017 12:19 PM CDT Temperature 36 ??C (96.8 ??F) 12/19/2017 12:19 PM CDT Respiratory Rate 18 12/19/2017 12:19 PM CDT Oxygen Saturation 98% 12/19/2017 12:19 PM CDT Inhaled Oxygen Concentration - - Weight 95.3 kg (210 lb) 12/01/2017 1:00 PM CDT Height 188 cm (6' 2 ) 12/01/2017 1:00 PM CDT Body Mass Index 26.96 12/01/2017 1:00 PM CDT Plan of Treatment Health Maintenance Due Date Last Done Comments Hepatitis C Virus (HCV) Screening 1955 TdaP Immunization 1955 Colonoscopy 2001 Colorectal Cancer Screening 2001 Cologuard 2006 Immunochemical Fecal Occult Blood 2006 Pneumococcal Immunization (5 0+ years) (1 of 1 - PCV) 2006 Zoster Immunization (1 of 2) 2006 PSA Discussion 2011 Respiratory Syncytial Virus (RSV) Immunization (Adult) (1 - Risk 60-74 years 1-dose series) 2016 Influenza Immunization (#1) 2023 12/22/2015 SARS-COV-2 Immunization ( season) 2023 03/23/2021, 06/28/2020, 06/05/2020 Hepatitis B Immunization Aged Out No longer eligible based on patient's age to complete this topic Meningococcal Immunization (ACWY) Aged Out No longer eligible b ased on patient's age to complete this topic Rotavirus Immunization Aged Out No lo nger eligible based on patient's age to complete this topic [place] [address] [address] [address] Care Teams Set O Type Operator Relationship Specialty Start Date End Date Mauri Tripp MD [address] [place] [address] PCP - General Family Medicine 08/25/16
--- OUTSIDE RECORDS SUMMARY | 2024-05-03 08:46 | XMS_ITS | CONTINUITY OF CARE DOCUMENT ---
Author Name antonella berman Address Unknown Organization [facility] Address [address] [address] [facility] [address] [place] [address] Phone [phone] Care Team Providers Care Guidance Adviser Name Role Phone Jackie HICKEY, Wan Unavailable VERNACE DO, CARRI Unavailable [phone] VERNACE DO, CARRI Unavailable PROBLEMS Condition Status Date Provider Notes Family History of Hypertension: active ? Shandra Mejia MD Abnormal nuclear stress test active Wan tinajero MD Chest pain active Wan Mejia MD Cardiology examination active Serena donahue SUPER[employer] C O P D active Wan Mejia MD HTN-02/10 ECHO EF 60 / EC HO EF 50-55 completed - Wan Mejia MD Hyperlipidemia, unspecified active Tracy owens RN TOBACCO ABUSE-quit active Wan Mejia MD ENCOUNTERS Date Type Provider Location Encounter Diag nosis - In-person encounter Office Visit Wan Mejia MD [facility] Cardiology examination - In-person encounter Office Visit Wan Mejia MD [facility] - In-person encounter Office Visit Wan Mejia MD [facility] - In-person encounter Office Visit Wan Mejia MD [facility] - In-person encounter Office Visit Wan Mejia MD [facility] - In-person encounter Office Visit Wan Mejia MD [facility] - In-person encounter Office Visit Wan Mejia MD [facility] Chest pain - In-person encounter Office Visit Wan Mejia MD [facility] - In-person encounter Office Visit Wan Mejia MD [facility] - In-person encounter Office Visit Wan Mejia MD [facility] Abnormal nuclear stress test - In-person encounter Office Visit Wan Mejia MD [facility] - In-person encounter Office Visit Wan Mejia MD [facility] TOBACCO ABUSE-quit - In-person encounter Office Visit Wan Mejia MD [facility] Family History of Hypertension: - In-person encounter Office Visit Wan Mejia MD [facility] - In-person encounter Office Visit Wan Mejia MD [facility] - In-person encounter Office Visit Wan Mejia MD [facility] - In-person encounter Office Visit Wan Mejia MD [facility] - In-person encounter Office Visit Wan Mejia MD [facility] - In-person encounter Office Visit Wan Mejia MD [facility] Hyperlipidemia, unspecifiedHTN-02/10 ECHO EF 60 / ECHO EF 50-55 - In-person encounter Office Visit Wan Mejia MD [facility] VITAL SIGNS Date Observation Value Provider Body Mass Index (Ratio) 27.04 kg/m2 Shandra Mejia MD blood pressure, diastolic 78 mm[Hg] Ximena Reddy blood pressure, systolic 122 mm[Hg] Carri Reddy oxygen saturation, oximetry 94 % Alisha Reddy pulse rate 70 /min Alisha Reddy respiratory rate E&M 12 /min Alisha Reddy weight E&M 205 [lb_av] Alisha Reddy height E&M 73 [in_i] Alisha Reddy blood pressure, cuff size regular Ximena matt Reddy Body Mass Index (Ratio) 28.63 kg/m2 Shandra Mejia MD blood pressure, diastolic 86 mm[Hg] Li nkLog blood pressure, systolic 154 mm[Hg] Cherelle kLog blood pressure, cuff size regular Garrett rret blood pressure, diastolic 86 mm[Hg] Ja rret blood pressure, systolic 154 mm[Hg] Jar ret oxygen saturation, oximetry 96 % James pulse rate 72 /min James respiratory rate E&M 16 /min James weight E&M 217 [lb_av] James er height E&M 73 [in_i] James er y Body Mass Index (Ratio) 29.15 kg/m2 Shandra Mejia MD blood pressure, diastolic 98 mm[Hg] St carine Jimenez blood pressure, systolic 159 mm[Hg] Jose Jimenez oxygen saturation, oximetry 98 % Sheri Jimenez pulse rate 64 /min Sheri Jimenez respiratory rate E&M 16 /min Sheri peres weight E&M 221 [lb_av] Sheri Tony height E&M 73 [in_i] Sheri Tony Body Mass Index (Ratio) 28.63 kg/m2 Shandra Mejia MD blood pressure, diastolic 94 mm[Hg] Li nkLogic blood pressure, systolic 159 mm[Hg] Cherelle kLogamairani oxygen saturation, oximetry 92 % Elizabeth Cabrera blood pressure, cuff size large Tr balwinder Rick blood pressure, diastolic 94 mm[Hg] Tr josezafar Cabrera blood pressure, systolic 159 mm[Hg] Try mariamlily Cabrera pulse rate 68 /min Elizabeth Cabrera respiratory rate E&M 18 /min Elizabeth Cabrera weight E&M 217 [lb_av] Elizabeth Cabrera height E&M 73 [in_i] Elizabeth Cabrera Body Mass Index (Ratio) 28.23 kg/m2 Shandra Mejia MD blood pressure, diastolic 80 mm[Hg] Rh ron Sprague blood pressure, systolic 140 mm[Hg] Rho mason Sprague oxygen saturation, oximetry 98 % Jia Sprague pulse rate 71 /min Jia Sprague weight E&M 214 [lb_av] Jia Sprague blood pressure, resting Yes Cheryln brandon Sprague respiratory rate E&M 18 /min Jia Sprague blood pressure, cuff size regular Rh ron Sprague height E&M 73 [in_i] Jia Sprague Body Mass Index (Ratio) 27.97 kg/m2 Shandra Mejia MD blood pressure, diastolic 80 mm[Hg] Verito Todd blood pressure, systolic 122 mm[Hg] Cynthia Todd oxygen saturation, oximetry 98 % Sami Todd respiratory rate E&M 18 /min Tapan Todd pulse rate 63 /min Sami malik weight E&M 212 [lb_av] Sami malik height E&M 73 [in_i] Sami Campos hodan Body Mass Index (Ratio) 27.70 kg/m2 Shandra Mejia MD oxygen saturation, oximetry 98 % Chastity Russell pulse rate 65 /min Chastity Russell weight E&M 210 [lb_av] Chastity Russell blood pressure, diastolic 88 mm[Hg] Ch astity Russell blood pressure, systolic 144 mm[Hg] Maria G stity Russell respiratory rate E&M 16 /min Chastit y Russell height E&M 73 [in_i] [facility] Body Mass Index (Ratio) 30.08 kg/m2 Shandra Mejia MD blood pressure, cuff size regular Cr huma Vargas blood pressure, diastolic 80 mm[Hg] Cr huma Vargas blood pressure, systolic 130 mm[Hg] Cry stal Sam oxygen saturation, oximetry 98 % Maura Vargas respiratory rate E&M 17 /min Maura Vargas pulse rate 59 /min Maura perry weight E&M 228 [lb_av] Maura perry height E&M 73 [in_i] Maura perry Body Mass Index (Ratio) 28.49 kg/m2 Shandra Mejia MD blood pressure, cuff size large Ke rri Eligio blood pressure, diastolic 90 mm[Hg] Ke rri Eligio blood pressure, systolic 142 mm[Hg] Fabiana Del Valle oxygen saturation, oximetry 98 % Malika Del Valle respiratory rate E&M 20 /min Malika Anshul dardennfeldwilson pulse rate 90 /min Malika Gonzalez [facility] weight E&M 216 [lb_av] Malika Imane er height E&M 73 [in_i] Malika Roth [facility] Body Mass Index (Ratio) 28.63 kg/m2 Shandra Mejia MD blood pressure, cuff size regular Ke rri [facility] blood pressure, diastolic 90 mm[Hg] Ke rri [facility] blood pressure, systolic 130 mm[Hg] Fabiana ri [facility] oxygen saturation, oximetry 97 % Malika Valeriobeth respiratory rate E&M 18 /min Malika Landers clarisselachellebeth pulse rate 60 /min Malika Roth [facility] weight E&M 217 [lb_av] Malika Roth [facility] height E&M 73 [in_i] Malika Roth [facility] blood pressure, diastolic 80 mm[Hg] Verito Todd blood pressure, systolic 140 mm[Hg] Cynthia Todd pulse rate 70 /min Sami malik oxygen saturation, oximetry 98 % Smai Todd respiratory rate E&M 18 /min Tapan Todd Body Mass Index (Ratio) 27.86 kg/m2 Tracy Todd weight E&M 211.2 [lb_av] Sami coe Body Mass Index (Ratio) 24.67 kg/m2 Anea lizabeth Alberto blood pressure, diastolic 60 mm[Hg] An eatris Brown blood pressure, systolic 118 mm[Hg] Ane atris Brown pulse rate 66 /min Aneatris Alberto oxygen saturation, oximetry 98 % Valatrjoide Dominguez respiratory rate E&M 17 /min Aneatri vicky Dominguez weight E&M 187 [lb_av] Aneatris Alberto Body Mass Index (Ratio) 26.52 kg/m2 Vala lizabeth Dominguez blood pressure, diastolic 80 mm[Hg] An soy Dominguez blood pressure, systolic 131 mm[Hg] Ane atrivicky Dominguez pulse rate 63 /min Aneatris Alberto oxygen saturation, oximetry 98 % Valatrjodie Dominguez respiratory rate E&M 16 /min Aneatri s [facility] weight E&M 201 [lb_av] Valatrjodie [facility] Body Mass Index (Ratio) 26.38 kg/m2 Ojeda i Eligio blood pressure, diastolic 70 mm[Hg] Ke rri Eligio blood pressure, systolic 122 mm[Hg] Fabiana Del Valle pulse rate 63 /min Malika Gonzalez er oxygen saturation, oximetry 98 % Malika Del Valle respiratory rate E&M 16 /min Malika alcaraz weight E&M 200 [lb_av] Malika Roth lder blood pressure, diastolic 84 mm[Hg] Garrett Castro RN blood pressure, systolic 131 mm[Hg] Francisco Castro RN pulse rate 65 /min Francisco Castro RN oxygen saturation, oximetry 98 % Francisco Castro RN respiratory rate E&M 16 /min Francisco jeffery RN height E&M 73 [in_i] Francisco Castro RN weight E&M 200 [lb_av] Francisco Castro RN blood pressure, diastolic 78 mm[Hg] Thomas Cohn blood pressure, systolic 130 mm[Hg] Pat Cohn pulse rate 65 /min Lola Cohn oxygen saturation, oximetry 95 % Lola Lalit respiratory rate E&M 16 /min Lola Dodson adryan weight E&M 202 [lb_av] Lola Lalit blood pressure, diastolic 89 mm[Hg] Verito rutherford [place] blood pressure, systolic 141 mm[Hg] Cynthia martinez [place] pulse rate 65 /min [place] oxygen saturation, oximetry 93 % [place] respiratory rate E&M 18 /min [place] weight E&M 213 [lb_av] [place] blood pressure, diastolic 82 mm[Hg] Garrett Castro RN blood pressure, systolic 155 mm[Hg] Francisco Castro RN pulse rate 58 /min Francisco Castro RN oxygen saturation, oximetry 97 % Francisco Catsro RN respiratory rate E&M 18 /min Francisco jeffery RN weight E&M 215 [lb_av] Francisco Castro RN blood pressure, diastolic 80 mm[Hg] Garrett Castro RN blood pressure, systolic 129 mm[Hg] Francisco Castro RN pulse rate 64 /min Francisco Castro RN oxygen saturation, oximetry 98 % Francisco Castro RN respiratory rate E&M 16 /min Francisco jeffery RN weight E&M 205 [lb_av] Francisco Castro RN blood pressure, diastolic 86 mm[Hg] Rosemary Mendez blood pressure, systolic 129 mm[Hg] Rosemary Mendez pulse rate, standing 56 /min Rosemary Tineo on oxygen saturation, oximetry 98 % Rosemary Mendez weight E&M 206 [lb_av] Rosemary Mendez RESULTS Date Observation Value Provider Reference Range Interpretation Location lipoprotein, beta, serum, point, quantitative, calculated 79 mg/dL Link[facility] 0-99 very low density lipoproteins 20 mg/dL [facility] 5-40 HDL cholesterol, serum 35 mg/dL [facility] >39 Low triglyceride, serum, random 102 mg/dL [facility] 0-149 cholesterol, serum 134 mg/dL [facility] [phone]/07/ 31 prothrombin time (patient) 10.7 s [facility] 9.1-12.0 international normalized ratio (INR) 1.0 [facility] 0.8-1.2 calcium, serum 9.4 mg/dL [facility] 8.6-10.2 carbon dioxide, venous blood 27 mmol/L [facility] 20-29 chloride, serum 102 mmol/L [facility] 96-106 potassium, serum 4.8 mmol/L [facility] 3.5-5.2 sodium, serum 142 mmol/L [facility] [phone]/07/ 31 urea nitrogen/creatinine ratio, serum 8 [facility] 10-24 Low eGFR if 67 mL/min/{1 .73_m2} [facility] >59 eGFR if not 58 mL/min/{1 .73_m2} [facility] >59 Low creatinine, serum 1.30 mg/dL [facility] 0.76-1.27 High urea nitrogen, blood 11 mg/dL [facility] 8-27 blood glucose, random 91 mg/dL [facility] 65-99 basophil count, absolute 0.1 x10E3/uL [facility] 0.0-0.2 Eosinophil Absolute Count 0.2 X10E3/UL [facility] 0.0-0.4 monocyte count, blood, automated 0.7 X10E3/UL [facility] 0.1-0.9 lymphocyte count, blood, automated 2.1 X10E3/UL [facility] 0.7-3.1 Absolute Neutrophils 5.0 X10E3/UL [facility] 1.4-7.0 basophils as percent of blood leukocytes 1 % [facility] Not Estab. eosinophils as percent of blood leukocytes 3 % [facility] Not Estab. monocytes as percent of blood leukocytes 8 % [facility] Not Estab. lymphocytes as percent of blood leukocytes 26 % [facility] Not Estab. neutrophils as percent of blood leukocytes 62 % [facility] Not Estab. platelet count 177 X10E3/UL [facility] [phone]/07/ 31 red blood cell distribution width 13.4 % [facility] 11.6-15.4 mean corpuscular hemoglobin concentration, RBC 33.5 G/DL [facility] 31.5-35.7 mean corpuscular hemoglobin, RBC 30.4 pg [facility] 26.6-33.0 mean corpuscular volume, RBC 91 fL [facility] 79-97 hematocrit, blood 47.4 % [facility] 37.5-51.0 hemoglobin, blood 15.9 g/dL [facility] 13.0-17.7 erythrocyte (RBC) count 5.23 X10E6/UL [facility] 4.14-5.80 leukocyte count, blood 8.1 X10E3/UL [facility] 3.4-10.8 alanine aminotransferase (SGPT), serum 13 1/L [facility] [place] aspartate aminotransferase (SGOT), serum 12 1/L [facility] calcium, serum 9.0 mg/dL [facility] blood glucose, fasting 89 mg/dL [facility] [place] creatinine, serum 1.06 mg/dL [facility] [place] urea nitrogen, blood 8 mg/dL [facility] [place] carbon dioxide, serum, total 28 mmol/L [facility] [place] chloride, serum 102 mmol/L [facility] [place] potassium, serum 4.0 mmol/L [facility] [place] sodium, serum 140 mmol/L [facility] [place] cholesterol/HDL ratio, serum 3.2 David Carvalho triglyceride, serum, fasting 119 mg/dL David Carvalho HDL cholesterol, serum 44 mg/dL David Carvalho LDL cholesterol, serum 72 mg/dL David Carvalho cholesterol, serum 140 mg/dL David Carvalho HISTORY OF MEDICATION USE Medication Status Instructions Dates Provider Indications Com ments atorvastatin 80 mg tablet active Take 1 tablet by mouth once a day DUE FOR FOLLOW UP Malika Del Valle atorvastatin 80 mg tablet completed TAKE 1 TABLET BY MOUTH ONCE DAILY - Malika Del Valle atorvastatin 80 mg tablet completed Take 1 tablet by mouth once a day - Teri Pratt losartan 50 mg tablet active Take 1 tablet by mouth once a day Malika Del Valle Symbicort 160-4.5 mcg/actuation HFA aerosol inhaler active Wan Mejia MD albuterol sulfate 90 mcg/actuation HFA aerosol inhaler active Wan Mejia MD atorvastatin 80 mg tablet completed TAKE 1 TABLET BY MOUTH EVERYDAY AT BEDTIME - Malika Del Valle atorvastatin 40 mg tablet completed TAKE 1 TABLET BY MOUTH EVERYDAY AT BEDTIME - Wan Mejia MD losartan 50 mg tablet completed TAKE 1 TABLET BY MOUTH EVERY DAY - Malika Del Valle clopidogrel 75 mg tablet completed TAKE 1 TABLET DAILY - Russell Paulson clopidogrel 75 mg tablet completed 1 tab po daily - Wan Mejia MD Nitrostat 0.4 mg tablet, sublingual active 1 tablet under tongue every two hours as needed Wan Mejia MD RANITIDINE HCL 150 MG ORAL CAPSULE completed Take 1 tablet by mouth once a day - Serena APONTE Toprol XL 100 mg tablet extended release 24 hr active Take 1 tablet by mouth once a day Wan Mejia MD #90, 90 days supply, Prescribed by PHILIP [facility], Filled 08/23/2018 atorvastatin 20 mg tablet completed Take 1 tablet by mouth once a day - Wan Mejia MD #90, 90 days supply, Prescribed by [facility], Filled 10/25/2018 aspirin 81 mg tablet,delayed release (DR/EC) active 1 tablet by mouth once a day Malika Del Valle NIACIN ER 1000 MG ORAL TABLET EXTENDED RELEASE completed Take 1 tab po qhs - Wan Mejia MD LOVASTATIN 20 MG ORAL TABLET completed one tablet daily at bedtime - Maura Vargas NORVASC 5 MG ORAL TABLET completed ONE TAB. DAILY - Wan Mejia MD FISH OIL 1000 MG ORAL CAPSULE completed - Malika Del Valle ASPIRIN 81 MG ORAL TABLET completed ONE TAB. DAILY - Malika Del Valle PLAVIX 75 MG ORAL TABLET completed ONE TAB. DAILY - Wan Mejia MD TOPROL XL 50 MG ORAL TABLET EXTENDED RELEASE 24 HOUR completed OD - Maura Vargas SOCIAL HISTORY Date Observation Value Provider [facility] of [facility] alcohol use no Serena Ventimig [facility] passive cigarette sm eliz exposure no Serena Ventimiglia [facility] smoking, year quit 2013 Serena Ve ntimiglia [facility] smoking, date [facility] smoking history, tot al pack/year 40 Serena Ventimiglia [facility] smoking history, tot al pack/day 1/4 Serena Ventimiglia [facility] cigarette use yes [facility] smoking status Current every da y smoker Serenaalicia So [facility] drug use no Wan Mejia MD alcohol use no Wan Mejia MD passive cigarette sm eliz exposure no Wan Mejia MD smoking, year quit 2013 Wan morales MD smoking, date started 1973 Wan Mejia MD smoking history, tot al pack/year 40 Wan Mejia MD smoking history, tot al pack/day 1/4 Wan Mejia MD cigarette use yes Wan Freeman smoking status Former smoker Wan Mejia MD social history E&M Marital Statu s: L kanchan with family/friends E thnicity: Luis A sifuentes is a former smoker. Q uit in 02/2014 Smoking History: Luis A sifuentes is a former smoker. Wan Mejia MD social history reviewed E&M revi ewed - no changes required Wan Mejia MD physical exercise, frequency, days per week yes Sheri Jimenez caffeine use, averag e drinks per day yes Sheri Jimenez passive cigarette sm eliz exposure no Sheri Jimenez smoking, year quit 2013 Sheri feliciano smoking, date started 1973 Sheri Jimenez smoking history, tot al pack/year 40 Sheri Jimenez smoking history, tot al pack/day 1/4 Sheri Jimenez cigarette use yes Sheri Jimenez smoking status Former smoker Sheri Jimenez physical exercise, frequency, days per week yes Wan Mejia MD caffeine use, averag e drinks per day yes Wan Mejia MD passive cigarette sm eliz exposure no Wan Mejia MD smoking, year quit 2013 Wan morales MD smoking, date started 1973 Wan Mejia MD smoking history, tot al pack/year 40 Wan Mejia MD smoking history, tot al pack/day 1/4 Wan Mejia MD smoking status Former smoker Wan Mejia MD social history reviewed E&M revi ewed - no changes required Wan Mejia MD social history E&M Marital Statu s: L kanchan with family/friends E thnicity: P atient is a former smoker. Q uit in 02/2014 Smoking History: P atient is a former smoker. Wan Mejia MD cigarette use yes Elizabeth perry social history E&M Marital Statu s: L kanchan with family/friends E thnicity: P atient is a former smoker. Q uit in 02/2014 Smoking History: P atient is a former smoker. Wan Mejia MD social history reviewed E&M revi ewed - no changes required Wan Mejia MD smoking status Former smoker Jia Sprague drug use no Wan Mejia MD alcohol use no Wan Mejia MD social history E&M Marital Statu s: L kanchan with family/friends E thnicity: P atient is a former smoker. Q uit in 02/2014 Smoking History: P atient is a former smoker. Wan Mejia MD social history reviewed E&M revi ewed - no changes required Wan Mejia MD physical exercise, frequency, days per week yes Sami Todd caffeine use, averag e drinks per day yes Sami Todd passive cigarette sm eliz exposure no Sami Todd smoking, year quit 2013 Sami Todd smoking, date started 1973 Olive Todd smoking history, tot al pack/year 40 Sami Todd smoking history, tot al pack/day 1/4 Sami Todd cigarette use yes Sami coe smoking status Former smoker Sami Trujillo drug use no Wan Mejia MD alcohol use no Wan Mejia MD smoking status Former smoker Wan Mejia MD social history E&M Marital Statu s: L kanchan with family/friends E thnicity: P bear is a former smoker. Q uit in 02/2014 Smoking History: P atjerry is a former smoker. Wan Mejia MD social history reviewed E&M revi ewed - no changes required Wan Mejia MD physical exercise, frequency, days per week yes [facility], averag e drinks per day yes [facility] sm eliz exposure no [facility] smoking, year quit 2013 [facility], date started [facility] smoking history, tot al pack/year 40 [facility], tot al pack/day 1/4 [facility] cigarette use yes [facility] social history E&M Marital Statu s: L kanchan with family/friends E thnicity: Luis A sifuentes is a former smoker. Q uit in 02/2014 Smoking History: P atjerry is a former smoker. Wan Mejia MD social history reviewed E&M revi ewed - no changes required Wan Mejia MD cigarette use yes Maura Covarrubias smoking status Former smoker Maura Lang beverly social history E&M Marital Statu s: L kanchan with family/friends E thnicity: P bear is a former smoker. Q uit in 02/2014 Smoking History: P atjerry is a former smoker. Wan Mejia MD social history reviewed E&M revi ewed - no changes required Wan Mejia MD physical exercise, frequency, days per week yes Malika Eligio alcohol use, average drinks per day none Malika Eligio alcohol use no Malika Gonzalez lder caffeine use, averag e drinks per day yes Malika Del Valle drug use no Malika Gonzalez lder passive cigarette sm eliz exposure no Malika Eligio smoking status Former smoker Wan Mejia MD number of grandchildren Wan Mejia MD U amanda Mejia MD social history reviewed E&M revi ewed - no changes required Wan Mejia MD physical exercise, frequency, days per week yes Malika Del Valle alcohol use, average drinks per day none Malika Eligio alcohol use no Malika Gonzalez lder caffeine use, averag e drinks per day yes Malika Eligio drug use no Malika Lulcolleen wester passive cigarette sm eliz exposure no Malika Eligio smoking, year quit 2013 Malika byrne smoking, date started 1972 Malika Eligio smoking history, tot al pack/year 40 Malika Eligio smoking history, tot al pack/day 1/4 Malika Del Valle cigarette use yes Malika Iman campos smoking status Former smoker Malika Jeovanny garcia smoking history, tot al pack/year 40 Tracy Bar RN social history reviewed E&M revi ewed - no changes required Wan Mejia MD physical exercise, frequency, days per week yes Sami Todd alcohol use, average drinks per day none Sami Todd alcohol use no Sami malik caffeine use, averag e drinks per day yes Sami Todd drug use no Sami malik passive cigarette sm eliz exposure no Sami Todd smoking, year quit 2013 Sami Todd smoking, date started 1973 Olive Todd smoking history, tot al pack/year 40 Sami Todd smoking history, tot al pack/day 1/ Sami Todd cigarette use yes Sami coe smoking status Former smoker Sami Trujillo smoking/tobacco cess ation, patient education and counseling yes Wan Mejia MD smoking, year quit 2013 Wan morales MD social history E&M Marital Statu s: Meri hemphill with family/friends E thnicity: Luis A sifuentes is a former smoker. Smoking History: Luis A sifuentes is a former smoker. Q uit in 02/2014 Wan Mejia MD cigarette use yes Wan Freeman social history reviewed E&M revi ewed - no changes required Wan Mejia MD smoking status Former smoker Wan Mejia MD social history reviewed E&M revi ewed - no changes required Wan Mejia MD physical exercise, frequency, days per week yes Wan Mejia MD alcohol use, average drinks per day none Wan Mejia MD alcohol use no Wan Mejia MD caffeine use, averag e drinks per day yes Wan Mejia MD drug use no Wan Mejia MD passive cigarette sm eliz exposure no Wan Mejia MD smoking/tobacco cess ation, patient education and counseling yes Wan Mejia MD smoking, date started 1974 Wan Mejia MD smoking history, tot al pack/year 40 Wan Mejia MD smoking history, tot al pack/day 1/4 Wan Mejia MD cigarette use yes Wan Freeman smoking status Current every da y smoker Wan Mejia MD smoking/tobacco cess ation, patient education and counseling yes Wan Mejia MD social history E&M Marital Statu s: L kanchan with family/friends E thnicity: P atient currently smokes every day. Smoking History: P atient currently smokes every day. Wan Mejia MD alcohol use no Malika darby smoking history, tot al pack/year 40 Malika Del Valle smoking history, tot al pack/day 1/4 Malika Del Valle cigarette use yes Malika campos smoking status current every da y smoker Wan Mejia MD drug use no Francisco Castro RN passive cigarette sm eliz exposure no Francisco Castro RN smoking history, tot al pack/day 1 Francisco Castro RN cigarette use yes Francisco Castro RN smoking history, tot al pack/year 39 Francisco Castro RN smoking, date started 1974 Francisco fuentes RN social history reviewed E&M reviewed Francisco Castro RN smoking status smoker - current status unknown Wan Mejia MD social history reviewed E&M reviewed Francisco Castro RN social history reviewed E&M reviewed Francisco Castro RN quit smoking, stage quit Francisco ashley RN smoking/tobacco cess ation, patient education and counseling yes Francisco Castro RN social history reviewed E&M reviewed Francisco Castro RN smoking/tobacco cess ation, patient education and counseling yes Francisco Castro RN social history E&M Marital Statu s: Meri hemphill with family/friends E thnicity: Francisco Castro RN social history reviewed E&M reviewed Francisco Castro RN drug use none Wan Mejia MD smoking/tobacco cess ation, patient education and counseling yes Wan Mejia MD smoking history, tot al pack/year 10 Wan Mejia MD cigarette use 2 Wan Freeman social history reviewed E&M reviewed Wan Mejia MD physical exercise, frequency, days per week yes [employer] caffeine use, averag e drinks per day yes [employer] alcohol use, average drinks per day none [employer] smoking status Smoker [employer] FUNCTIONAL STATUS Date Observation Value Provider HRA, CV Assess/Plan, Angina (inactive) Management Plan continue current therapy Serena So [employer] HRA, CV Assess/Plan, Angina (inactive) Management Plan continue current therapy Wan Mejia MD HRA, CV Assess/Plan, Angina (inactive) Management Plan continue current therapy Wan Mejia MD HRA, CV Assess/Plan, Angina (inactive) Management Plan continue current therapy Wan Mejia MD HRA, CV Assess/Plan, Angina (inactive) Management Plan continue current therapy Wan Mejia MD MENTAL STATUS Date Observation Value Provider assessment of judgme nt and insight E&M Alert and oriented to time, place and person. Mood and affect are normal. Francisco Castro RN assessment of judgme nt and insight E&M Alert and oriented to time, place and person. Mood and affect are normal. Francisco Castro RN assessment of judgme nt and insight E&M Alert and oriented to time, place and person. Mood and affect are normal. Francisco Castro RN assessment of judgme nt and insight E&M Alert and oriented to time, place and person. Mood and affect are normal. Francisco Castro RN assessment of judgme nt and insight E&M Alert and oriented to time, place and person. Mood and affect are normal. Francisco Castro RN assessment of judgme nt and insight E&M Alert and oriented to time, place and person. Mood and affect are normal. Wan Mejia MD FAMILY HISTORY Family Member Condition Mother Family History of Hy pertension: INSURANCE PROVIDERS Payer name Policy type / Coverage type [employer] MEDICARE ADVANTAGE PLAN (PPO) Medicare [id number] ADVANCE DIRECTIVES Name Date DISCUSSED - NO DECISION MADE TREATMENT PLAN Date Name Performer [id number],S,W ill INCREASE atorvastatin to 80mg once daily T he following medications were removed from the medication list: Atorvastatin 40 Mg Tablet (Atorvastatin) ..... Take 1 tablet by mouth everyday at bedtime Atorvastatin 20 Mg Tablet (Atorvastatin) ..... Take 1 tablet by mouth once a day His updated medication list for this problem includes: Atorvastatin 80 Mg Tablet (Atorvastatin) ..... Take 1 tablet by mouth everyday at bedtime Wan Mejia MD [id number],S,W ill START losartan 25mg once daily BP today: 159/98 P rior BP: 159/94 (04/16/2021) Labs Reviewed: C reat: 1.30 (11/02/2019) C hol: 134 (11/02/2019) HDL: 35 (11/02/2019) His updated medication list for this problem includes: Toprol Xl 100 Mg Tablet Extended Release 24 Hr (Metoprolol succinate) ..... Take 1 tablet by mouth once a day Aspirin 81 Mg Tablet,delayed Release (dr/ec) (Aspirin) ..... 1 tablet by mouth once a day Wan Mejia MD [id number],S,N o chest pain. Stable. Continue medical therapy. His updated medication list for this problem includes: Nitrostat 0.4 Mg Tablet, Sublingual (Nitroglycerin) ..... 1 tablet under tongue every two hours as needed Toprol Xl 100 Mg Tablet Extended Release 24 Hr (Metoprolol succinate) ..... Take 1 tablet by mouth once a day Aspirin 81 Mg Tablet,delayed Release (dr/ec) (Aspirin) ..... 1 tablet by mouth once a day Wan Mejia MD [id number],S,WIll check an echo Wan Mejia MD [id number],B, Wan Mejia MD [id number],C,H is BP at home is usually within normal range. B P today: 159/94 P rior BP: 140/80 (05/23/2020) Labs Reviewed: C reat: 1.30 (11/02/2019) C hol: 134 (11/02/2019) HDL: 35 (11/02/2019) His updated medication list for this problem includes: Toprol Xl 100 Mg Oral Tablet Extended Release 24 Hour (Metoprolol succinate) ..... Take one tablet by mouth once daily Aspirin Adult Low Dose 81 Mg Oral Tablet Delayed Release (Aspirin) ..... One tab by mouth daily Wan Mejia MD Cardiology:continued cessation e ncouraged Serenaalicia So [facility] Cardiology:will get updated lipid panel from PCP H is updated medication list for this problem includes: Atorvastatin 80 Mg Tablet (Atorvastatin) ..... Take 1 tablet by mouth once a day due for follow up Serena So [facility] Cardiology:BP 122/78 C ontinue present medication regimen H is updated medication list for this problem includes: Losartan 50 Mg Tablet (Losartan) ..... Take 1 tablet by mouth once a day Toprol Xl 100 Mg Tablet Extended Release 24 Hr (Metoprolol succinate) ..... Take 1 tablet by mouth once a day Aspirin 81 Mg Tablet,delayed Release (dr/ec) (Aspirin) ..... 1 tablet by mouth once a day Serena So [facility] Cardiology:No new sy mptoms and overall active and feeling well W ill continue present medication regimen H is updated medication list for this problem includes: Nitrostat 0.4 Mg Tablet, Sublingual (Nitroglycerin) ..... 1 tablet under tongue every two hours as needed Toprol Xl 100 Mg Tablet Extended Release 24 Hr (Metoprolol succinate) ..... Take 1 tablet by mouth once a day Aspirin 81 Mg Tablet,delayed Release (dr/ec) (Aspirin) ..... 1 tablet by mouth once a day Serena Saray [facility] Cardiology:stable, no angina Agustín Mejia MD Cardiology:increase losrtan to 50mg once daily BP today: 154/86 P rior BP: 159/98 (04/08/2022) Labs Reviewed: C reat: 1.30 (11/02/2019) C hol: 134 (11/02/2019) HDL: 35 (11/02/2019) LDL: 79 (11/02/2019) T (11/02/2019) Wan Mejia MD Cardiology: H is updated medication list for this problem includes: Atorvastatin 80 Mg Tablet (Atorvastatin) ..... Take 1 tablet by mouth everyday at bedtime C HOL: 134 (11/02/2019) LDL: 79 (11/02/2019) HDL: 35 (11/02/2019) T (11/02/2019) Wan Mejia MD Cardiology:denies Wan Freeman Cardiology:Benefitting from the use of inhlaers Wan Mejia MD Cardiology:Will INCR EASE atorvastatin to 80mg once daily T he following medications were removed from the medication list: Atorvastatin 40 Mg Tablet (Atorvastatin) ..... Take 1 tablet by mouth everyday at bedtime Atorvastatin 20 Mg Tablet (Atorvastatin) ..... Take 1 tablet by mouth once a day His updated medication list for this problem includes: Atorvastatin 80 Mg Tablet (Atorvastatin) ..... Take 1 tablet by mouth everyday at bedtime Wan Mejia MD Cardiology:Will STAR T losartan 25mg once daily BP today: 159/98 P rior BP: 159/94 (04/16/2021) Labs Reviewed: C reat: 1.30 (11/02/2019) C hol: 134 (11/02/2019) HDL: 35 (11/02/2019) His updated medication list for this problem includes: Toprol Xl 100 Mg Tablet Extended Release 24 Hr (Metoprolol succinate) ..... Take 1 tablet by mouth once a day Aspirin 81 Mg Tablet,delayed Release (dr/ec) (Aspirin) ..... 1 tablet by mouth once a day Wan Mejia MD Cardiology:No chest pain. Stable. Continue medical therapy. His updated medication list for this problem includes: Nitrostat 0.4 Mg Tablet, Sublingual (Nitroglycerin) ..... 1 tablet under tongue every two hours as needed Toprol Xl 100 Mg Tablet Extended Release 24 Hr (Metoprolol succinate) ..... Take 1 tablet by mouth once a day Aspirin 81 Mg Tablet,delayed Release (dr/ec) (Aspirin) ..... 1 tablet by mouth once a day Wan Mejia MD Cardiology:WIll check an echo Us marito Mejia MD Cardiology Wan Mejia MD Cardiology:His BP at home is usually within normal range. B P today: 159/94 P rior BP: 140/80 (05/23/2020) Labs Reviewed: C reat: 1.30 (11/02/2019) C hol: 134 (11/02/2019) HDL: 35 (11/02/2019) His updated medication list for this problem includes: Toprol Xl 100 Mg Oral Tablet Extended Release 24 Hour (Metoprolol succinate) ..... Take one tablet by mouth once daily Aspirin Adult Low Dose 81 Mg Oral Tablet Delayed Release (Aspirin) ..... One tab by mouth daily Wan Mejia MD Cardiology:per Dr Harini Mejia MD Cardiology: B P today: 140/80 P rior BP: 122/80 (11/30/2019) Labs Reviewed: C reat: 1.30 (11/02/2019) C hol: 134 (11/02/2019) HDL: 35 (11/02/2019) Wan Mejia MD Cardiology Wan Mejia MD Cardiology: B P today: 122/80 P rior BP: 144/88 (10/23/2019) Labs Reviewed: C reat: 1.30 (11/02/2019) C hol: 134 (11/02/2019) HDL: 35 (11/02/2019) Wan Mejia MD Cardiology:Recently underwent Cardiac cath and PCI to OM1. On ASA and Brilinta. Patient is doing well and has not had any reoccurance of angina, CP or SOB. Will f/u in 6 months Wan Mejia MD Cardiology: H is updated medication list for this problem includes: Atorvastatin Calcium 20 Mg Oral Tablet (Atorvastatin calcium) ..... Take one tablet by mouth once daily Wan Mejia MD Cardiology: B P today: 144/88 P rior BP: 130/80 (10/27/2018) Labs Reviewed: C reat: 1.06 (01/27/2009) C hol: 140 (01/27/2009) HDL: 44 (01/27/2009) LDL: 72 (01/27/2009) T (01/27/2009) Wan Mejia MD Cardiology:Patient h ad a pain in his chest radiating to his left arm that was intense and similar to when he had a heart attack. This was one episode that lasted about 20 minutes following a walk. After resting for a few minutes on the couch the pain subsided and has not returned in the five days since. Will schedule stress test and will perscribe nitro PRN. Wan Mejia MD Cardiology Wan Mejia MD Cardiology: B P today: 130/80 P rior BP: 142/90 (12/01/2017) Labs Reviewed: C reat: 1.06 (01/27/2009) C hol: 140 (01/27/2009) HDL: 44 (01/27/2009) LDL: 72 (01/27/2009) T (01/27/2009) Wan Mejia MD Cardiology:Appears s table. Continue medical management Wan Mejia MD Cardiology Follow up : B P today: 142/90 P rior BP: 130/90 (12/23/2016) Labs Reviewed: C reat: 1.06 (01/27/2009) C hol: 140 (01/27/2009) HDL: 44 (01/27/2009) LDL: 72 (01/27/2009) T (01/27/2009) Wan Mejia MD Cardiology Follow up :stable. Us marito Mejia MD Cardiology Follow up :As it has been 3 years since his last, will repeat stress test. Wan Mejia MD Cardiology Follow up : p er Dr Qasim Mejia MD Cardiology Follow up : B P today: 130/90 P rior BP: 140/80 (12/12/2015) Labs Reviewed: C reat: 1.06 (01/27/2009) C hol: 140 (01/27/2009) HDL: 44 (01/27/2009) LDL: 72 (01/27/2009) T (01/27/2009) Wan Mejia MD Cardiology Follow up :Stable. Recently stopped Xarelto, one year after finding blood clot in lungs. Wan Mejia MD Cardiology Wan Mejia MD Cardiology:per Dr Qasim pete MD Cardiology Wan Mejia MD Cardiology:Will do carotid US Us marito Mejia MD Cardiology:Quit in 02/2014 Wan Mejia MD Cardiology:Quit in 02/2014 Wan Mejia MD Cardiology:BP 118/60 Wan dodson MD Cardiology:s/p stent to LAD (03/11/2005) in setting of non Q-wave NV Wan Mejia MD Follow up :The Patie nt was reencouraged to stop smoking. Wan Mejia MD Follow up : H is updated medication list for this problem includes: Aspirin 81 Mg Tabs (Aspirin) ..... One tab. daily Wan Mejia MD Follow up :Please ad just cholesterol medication to keep LDL less than 70 and HDL greater than 50 Wan Mejia MD Follow up :122/70 H is updated medication list for this problem includes: Toprol Xl 50 Mg Tb24 (Metoprolol succinate) ..... Od Aspirin 81 Mg Tabs (Aspirin) ..... One tab. daily Norvasc 5 Mg Tabs (Amlodipine besylate) ..... One tab. daily Wan Mejia MD routine: H is updated medication list for this problem includes: Toprol Xl 50 Mg Tb24 (Metoprolol succinate) ..... Od Advicor 1000-20 Mg Tb24 (Niacin-lovastatin) ..... Two tab. at bedtime Aspirin 81 Mg Tabs (Aspirin) ..... One tab. daily Norvasc 5 Mg Tabs (Amlodipine besylate) ..... One tab. daily BP today: 131/84 Prior BP: 130/78 (07/30/2011) N uclear Stress Findings: 1. Normal Sebastian protocol exercise tolerance test. 2 . Normal left ventricular size and function with a calculated ejection fraction of 48%. 3 . Myocardial scintigraphy is normal without evidence for previous myocardial infarction or reversible ischemia. GC (02/07/2009) C ardiac Cath: EF - 60%. A kinetic anterolateral wall. % LAD stenosis: 75% mid in the setting of a non Q-wave myocardial infarction. (03/11/2005) C ardiac Cath Comments: Taxus stent to the LAD with a 3.5 x 12mm. (03/11/2005) C arotid Doppler/Duplex: normal: (05/25/2005) C HOL: 140 (01/27/2009) LDL: 72 (01/27/2009) HDL: 44 (01/27/2009) T (01/27/2009) B UN: 8 (01/27/2009) Creat: 1.06 (01/27/2009) Glucose: 89 (01/27/2009) N a+: 140 (01/27/2009) K+: 4.0 (01/27/2009) Cl: 102 (01/27/2009) O rders: E KG (CPT-24506) Wan Mejia MD routine:The Patient was reencouraged to stop smoking. Wan Mejia MD routine: H is updated medication list for this problem includes: Advicor 1000-20 Mg Tb24 (Niacin-lovastatin) ..... Two tab. at bedtime BP today: 131/84 Prior BP: 130/78 (07/30/2011) CHOL: 140 (01/27/2009) LDL: 72 (01/27/2009) HDL: 44 (01/27/2009) T (01/27/2009) Wan Mejia MD routine: H is updated medication list for this problem includes: Toprol Xl 50 Mg Tb24 (Metoprolol succinate) ..... Od Aspirin 81 Mg Tabs (Aspirin) ..... One tab. daily Norvasc 5 Mg Tabs (Amlodipine besylate) ..... One tab. daily BP today: 131/84 P rior BP: 130/78 (07/30/2011) Labs Reviewed: C reat: 1.06 (01/27/2009) C hol: 140 (01/27/2009) HDL: 44 (01/27/2009) LDL: 72 (01/27/2009) T (01/27/2009) Wan Mejia MD routine: H is updated medication list for this problem includes: Aspirin 81 Mg Tabs (Aspirin) ..... One tab. daily Carotid Duplex Scan: n ormal: (05/25/2005) Wan Mejia MD follow up: H is updated medication list for this problem includes: Toprol Xl 50 Mg Tb24 (Metoprolol succinate) ..... Od Advicor 1000-20 Mg Tb24 (Niacin-lovastatin) ..... Two tab. at bedtime Aspirin 81 Mg Tabs (Aspirin) ..... One tab. daily Norvasc 5 Mg Tabs (Amlodipine besylate) ..... One tab. daily BP today: 130/78 Prior BP: 141/89 (02/12/2010) N uclear Stress Findings: 1. Normal Sebastian protocol exercise tolerance test. 2 . Normal left ventricular size and function with a calculated ejection fraction of 48%. 3 . Myocardial scintigraphy is normal without evidence for previous myocardial infarction or reversible ischemia. GC (02/07/2009) C ardiac Cath: EF - 60%. A kinetic anterolateral wall. % LAD stenosis: 75% mid in the setting of a non Q-wave myocardial infarction. (03/11/2005) C ardiac Cath Comments: Taxus stent to the LAD with a 3.5 x 12mm. (03/11/2005) C arotid Doppler/Duplex: normal: (05/25/2005) C HOL: 140 (01/27/2009) LDL: 72 (01/27/2009) HDL: 44 (01/27/2009) T (01/27/2009) B UN: 8 (01/27/2009) Creat: 1.06 (01/27/2009) Glucose: 89 (01/27/2009) N a+: 140 (01/27/2009) K+: 4.0 (01/27/2009) Cl: 102 (01/27/2009) Wan Mejia MD follow up:Please adj ust cholesterol medication to keep LDL less than 70 and HDL greater than 50 H is updated medication list for this problem includes: Advicor 1000-20 Mg Tb24 (Niacin-lovastatin) ..... Two tab. at bedtime Wan Mejia MD follow up: H is updated medication list for this problem includes: Toprol Xl 50 Mg Tb24 (Metoprolol succinate) ..... Od Aspirin 81 Mg Tabs (Aspirin) ..... One tab. daily Norvasc 5 Mg Tabs (Amlodipine besylate) ..... One tab. daily BP today: 130/78 P rior BP: 141/89 (02/12/2010) Labs Reviewed: C reat: 1.06 (01/27/2009) C hol: 140 (01/27/2009) HDL: 44 (01/27/2009) LDL: 72 (01/27/2009) T (01/27/2009) Wan Mejia MD follow up: H is updated medication list for this problem includes: Aspirin 81 Mg Tabs (Aspirin) ..... One tab. daily Orders: E KG (CPT-33037) Carotid Duplex Scan: n ormal: (05/25/2005) Echocardiogram: N ormal left ventricular systolic function. Normal left ventricular size. Normal left ventricular wall thickness. The E to A ratio shows signs of borderline left ventricular diastolic dysfunction. Normal E/E` 11.0. L eft ventricular ejection fraction is estimated at 55%. There is non-specific thickening of the mitral valve leaflets. No mitral valve regurgitation is seen. Mildly thickened aortic valve leaflets. Velocities, as well as gradients across the aortic valve are normal. No evidence of aortic insufficiency. There is non-specific thickening of the tricuspid valve. There is trace physiologic t ricuspid valve regurgitation. IVC is normal in size with normal respiratory response. Unable to adequately assess the RVSP. - (02/12/2010) Wan Mejia MD follow up and echo: H is updated medication list for this problem includes: Toprol Xl 50 Mg Tb24 (Metoprolol succinate) ..... Od Advicor 1000-20 Mg Tb24 (Niacin-lovastatin) ..... Two tab. at bedtime Aspirin 81 Mg Tabs (Aspirin) ..... One tab. daily Norvasc 5 Mg Tabs (Amlodipine besylate) ..... One tab. daily BP today: 141/89 Prior BP: 155/82 (12/19/2009) N uclear Stress Findings: 1. Normal Sebastian protocol exercise tolerance test. 2 . Normal left ventricular size and function with a calculated ejection fraction of 48%. 3 . Myocardial scintigraphy is normal without evidence for previous myocardial infarction or reversible ischemia. (02/07/2009) C ardiac Cath: EF - 60%. A kinetic anterolateral wall. % LAD stenosis: 75% mid in the setting of a non Q-wave myocardial infarction. (03/11/2005) C ardiac Cath Comments: Taxus stent to the LAD with a 3.5 x 12mm. (03/11/2005) C arotid Doppler/Duplex: normal: (05/25/2005) C HOL: 140 (01/27/2009) LDL: 72 (01/27/2009) HDL: 44 (01/27/2009) T (01/27/2009) B UN: 8 (01/27/2009) Creat: 1.06 (01/27/2009) Glucose: 89 (01/27/2009) N a+: 140 (01/27/2009) K+: 4.0 (01/27/2009) Cl: 102 (01/27/2009) Wan Mejia MD follow up and echo: H is updated medication list for this problem includes: Toprol Xl 50 Mg Tb24 (Metoprolol succinate) ..... Od Advicor 1000-20 Mg Tb24 (Niacin-lovastatin) ..... Two tab. at bedtime Aspirin 81 Mg Tabs (Aspirin) ..... One tab. daily Norvasc 5 Mg Tabs (Amlodipine besylate) ..... One tab. daily BP today: 141/89 Prior BP: 155/82 (12/19/2009) N uclear Stress Findings: 1. Normal Sebastian protocol exercise tolerance test. 2 . Normal left ventricular size and function with a calculated ejection fraction of 48%. 3 . Myocardial scintigraphy is normal without evidence for previous myocardial infarction or reversible ischemia. GC (02/07/2009) C ardiac Cath: EF - 60%. A kinetic anterolateral wall. % LAD stenosis: 75% mid in the setting of a non Q-wave myocardial infarction. (03/11/2005) C ardiac Cath Comments: Taxus stent to the LAD with a 3.5 x 12mm. (03/11/2005) C arotid Doppler/Duplex: normal: (05/25/2005) C HOL: 140 (01/27/2009) LDL: 72 (01/27/2009) HDL: 44 (01/27/2009) T (01/27/2009) B UN: 8 (01/27/2009) Creat: 1.06 (01/27/2009) Glucose: 89 (01/27/2009) N a+: 140 (01/27/2009) K+: 4.0 (01/27/2009) Cl: 102 (01/27/2009) Wan Mejia MD follow up and echo: H is updated medication list for this problem includes: Advicor 1000-20 Mg Tb24 (Niacin-lovastatin) ..... Two tab. at bedtime BP today: 141/89 Prior BP: 155/82 (12/19/2009) C HOL: 140 (01/27/2009) LDL: 72 (01/27/2009) HDL: 44 (01/27/2009) T (01/27/2009) Wan Mejia MD follow up and echo: H is updated medication list for this problem includes: Toprol Xl 50 Mg Tb24 (Metoprolol succinate) ..... Od Aspirin 81 Mg Tabs (Aspirin) ..... One tab. daily Norvasc 5 Mg Tabs (Amlodipine besylate) ..... One tab. daily BP today: 141/89 P rior BP: 155/82 (12/19/2009) Labs Reviewed: C reat: 1.06 (01/27/2009) C hol: 140 (01/27/2009) HDL: 44 (01/27/2009) LDL: 72 (01/27/2009) T (01/27/2009) Wan Mejia MD follow up and echo: H is updated medication list for this problem includes: Aspirin 81 Mg Tabs (Aspirin) ..... One tab. daily Carotid Duplex Scan: n ormal: (05/25/2005) Echocardiogram: N ormal left ventricular systolic function. Normal left ventricular size. Normal left ventricular wall thickness. E to A ratio is consistent with restrictive physiology. Normal E/E` 7.0. Left ventricular ejection fraction is estimated at 60%. There is trace physiologic mitral valve regurgitation. The mitral valve leaflets appear myxomatous. Normal pericardium with no significant pericardial effusion. Normal aortic root. GC (02/07/2009) Wan Mejia MD high b/p:The Patient was reencouraged to stop smoking. Wan Mejia MD high b/p: H is updated medication list for this problem includes: Toprol Xl 50 Mg Tb24 (Metoprolol succinate) ..... Od Advicor 1000-20 Mg Tb24 (Niacin-lovastatin) ..... Two tab. at bedtime Aspirin 81 Mg Tabs (Aspirin) ..... One tab. daily Norvasc 5 Mg Tabs (Amlodipine besylate) ..... One tab. daily BP today: / Prior BP: 129/80 (02/21/2009) N uclear Stress Findings: 1. Normal Sebastian protocol exercise tolerance test. 2 . Normal left ventricular size and function with a calculated ejection fraction of 48%. 3 . Myocardial scintigraphy is normal without evidence for previous myocardial infarction or reversible ischemia. (02/07/2009) C ardiac Cath: EF - 60%. A kinetic anterolateral wall. % LAD stenosis: 75% mid in the setting of a non Q-wave myocardial infarction. (03/11/2005) C ardiac Cath Comments: Taxus stent to the LAD with a 3.5 x 12mm. (03/11/2005) C arotid Doppler/Duplex: normal: (05/25/2005) C HOL: 140 (01/27/2009) LDL: 72 (01/27/2009) HDL: 44 (01/27/2009) T (01/27/2009) B UN: 8 (01/27/2009) Creat: 1.06 (01/27/2009) Glucose: 89 (01/27/2009) N a+: 140 (01/27/2009) K+: 4.0 (01/27/2009) Cl: 102 (01/27/2009) Wan Mejia MD high b/p: H is updated medication list for this problem includes: Toprol Xl 50 Mg Tb24 (Metoprolol succinate) ..... Od Advicor 1000-20 Mg Tb24 (Niacin-lovastatin) ..... Two tab. at bedtime Aspirin 81 Mg Tabs (Aspirin) ..... One tab. daily Norvasc 5 Mg Tabs (Amlodipine besylate) ..... One tab. daily BP today: / Prior BP: 129/80 (02/21/2009) N uclear Stress Findings: 1. Normal Sebastian protocol exercise tolerance test. 2 . Normal left ventricular size and function with a calculated ejection fraction of 48%. 3 . Myocardial scintigraphy is normal without evidence for previous myocardial infarction or reversible ischemia. (02/07/2009) C ardiac Cath: EF - 60%. A kinetic anterolateral wall. % LAD stenosis: 75% mid in the setting of a non Q-wave myocardial infarction. (03/11/2005) C ardiac Cath Comments: Taxus stent to the LAD with a 3.5 x 12mm. (03/11/2005) C arotid Doppler/Duplex: normal: (05/25/2005) C HOL: 140 (01/27/2009) LDL: 72 (01/27/2009) HDL: 44 (01/27/2009) T (01/27/2009) B UN: 8 (01/27/2009) Creat: 1.06 (01/27/2009) Glucose: 89 (01/27/2009) N a+: 140 (01/27/2009) K+: 4.0 (01/27/2009) Cl: 102 (01/27/2009) O rders: E KG (CPT-72734) Wan Mejia MD high b/p: H is updated medication list for this problem includes: Advicor 1000-20 Mg Tb24 (Niacin-lovastatin) ..... Two tab. at bedtime BP today: / Prior BP: 129/80 (02/21/2009) C HOL: 140 (01/27/2009) LDL: 72 (01/27/2009) HDL: 44 (01/27/2009) T (01/27/2009) Wan Mejia MD high b/p:his ekg is unchanged and when bp is not high he has no chest or arm pains. will add a dose of norvasc 5 mg po once daily to see if this helps.he had a neg stress in 02/10 H is updated medication list for this problem includes: Toprol Xl 50 Mg Tb24 (Metoprolol succinate) ..... Od Aspirin 81 Mg Tabs (Aspirin) ..... One tab. daily Norvasc 5 Mg Tabs (Amlodipine besylate) ..... One tab. daily Prior BP: 129/80 (02/21/2009) Labs Reviewed: C reat: 1.06 (01/27/2009) C hol: 140 (01/27/2009) HDL: 44 (01/27/2009) LDL: 72 (01/27/2009) T (01/27/2009) Wan Mejia MD test results: O rders: T OBACCO USE CESSATION INTERMEDIATE 3-10 MINUTES (CPT-32074) Wan Mejia MD test results: H is updated medication list for this problem includes: Toprol Xl 50 Mg Tb24 (Metoprolol succinate) ..... Od Advicor 1000-20 Mg Tb24 (Niacin-lovastatin) ..... Two tab. at bedtime Aspirin 81 Mg Tabs (Aspirin) ..... One tab. daily BP today: 129/80 Prior BP: 129/86 (12/22/2007) N uclear Stress Findings: 1. Normal Sebastian protocol exercise tolerance test. 2 . Normal left ventricular size and function with a calculated ejection fraction of 48%. 3 . Myocardial scintigraphy is normal without evidence for previous myocardial infarction or reversible ischemia. GC (02/07/2009) C ardiac Cath: EF - 60%. A kinetic anterolateral wall. % LAD stenosis: 75% mid in the setting of a non Q-wave myocardial infarction. (03/11/2005) C ardiac Cath Comments: Taxus stent to the LAD with a 3.5 x 12mm. (03/11/2005) C arotid Doppler/Duplex: normal: (05/25/2005) C HOL: 140 (01/27/2009) LDL: 72 (01/27/2009) HDL: 44 (01/27/2009) T (01/27/2009) B UN: 8 (01/27/2009) Creat: 1.06 (01/27/2009) Glucose: 89 (01/27/2009) N a+: 140 (01/27/2009) K+: 4.0 (01/27/2009) Cl: 102 (01/27/2009) Wan Mejia MD test results: H is updated medication list for this problem includes: Toprol Xl 50 Mg Tb24 (Metoprolol succinate) ..... Od Aspirin 81 Mg Tabs (Aspirin) ..... One tab. daily BP today: 129/80 P rior BP: 129/86 (12/22/2007) Labs Reviewed: C reat: 1.06 (01/27/2009) C hol: 140 (01/27/2009) HDL: 44 (01/27/2009) LDL: 72 (01/27/2009) T (01/27/2009) Wan Mejia MD : H is updated medication list for this problem includes: Toprol Xl 50 Mg Tb24 (Metoprolol succinate) ..... Od Aspirin 81 Mg Tabs (Aspirin) ..... One tab. daily O K Wan Mejia MD : H is updated medication list for this problem includes: Advicor 1000-20 Mg Tb24 (Niacin-lovastatin) ..... Two tab. at bedtime A S ABOVE Wan Mejia MD : T he following medications were removed from the medication list: Plavix 75 Mg Tabs (Clopidogrel bisulfate) ..... One tab. daily His updated medication list for this problem includes: Toprol Xl 50 Mg Tb24 (Metoprolol succinate) ..... Od Advicor 1000-20 Mg Tb24 (Niacin-lovastatin) ..... Two tab. at bedtime Aspirin 81 Mg Tabs (Aspirin) ..... One tab. daily s /p stent lad. will stop the plavix a nd double the advicor dose to try to elevate the hdl O rders: S tress Test - Nuclear ([id number]) Wan Mejia MD :The Patient was reencouraged to stop smoking. Wan Mejia MD Date Name Complete Echo Complete Echo PROTHROMBIN TIME WIT H INR LIPID PANEL CBC (INCLUDES DIFF/P LT) BASIC METABOLIC PANE L W/EGFR Stress Exercise Card iolite STR - Nuclear Complete Echo Carotid Duplex Bilat eral Complete Echo STR - Nuclear Complete Echo Aortic Abdominal Ult rasound Carotid Duplex Bilat eral Complete Echo Complete Echo Complete Echo Complete Echo Stress Test - Nuclea r HISTORY OF PROCEDURES Procedure Date Procedure Name Provider Procedure Notes S tatus EKG Wan Mejia MD completed EKG Wan Mejia MD completed EKG Wan Mejia MD completed Cardiolite, 2 units Wan Mejia MD completed SPECT Images Wan Mejia MD complet ed Stress EKG Wan Mejia MD completed EKG Wan Mejia MD completed EKG Wan Mejia MD completed Stress EKG Callie Grullon MD complet ed Cardiolite, 2 units Wan Mejia MD completed SPECT Images Callie Grullon MD compl eted SNOMED-CT: [id number] Physical Exam, Performed: Pulse Exam of Foot Wan Mejia MD completed EKG Wan Mejia MD completed SNOMED-CT: [id number] Current Medications Documented Wan Mejia MD completed EKG Wan Mejia MD completed SNOMED-CT: [id number] Current Medications Documented Wan Mejia MD completed EKG Wan Mejia MD completed EKG Henri Henley MD complete d EKG Wan Mejia MD completed EKG Wan Mejia MD completed EKG Wan Mejia MD completed EKG Francisco Castro RN completed
--- NOTE | 2024-06-01 17:50 | WPDSLEEPSTUD ---
Sleep Study Date of Study: 05/03/24 Ordering Provider: INOCENTE Sequeira Interpreting Physician: Brandie Beyer MD Sleep Study Type: Polysomnogram Height: 1.88 m Weight: 90.718 kg Body Mass Index: 25.7 Neck Circumference (inches): 17 Hardwick: 7 Reason for Sleep Study Poor quality sleep, tossing and turning Sleep History Stewart France is a 69-year-old retired man who is having a sleep test for tossing and turning. He has had restless sleep most of his life. He wakes up during the night and he has excessive daytime sleepiness. He has never had any treatment for his sleep issues. He never awakens from sleep feeling short of breath. He frequently awakens at night with heartburn, belching or coughing. He frequently snores, and is frequently loud enough that others complain about it. He frequently has difficulty sleeping when he has a cold. He never gasps for breath at night. He occasionally has breathing problems at night reported to him by others. He rarely sweats excessively at night. He does not notice his heart pounding or beating irregularly at night. He occasionally falls asleep during the day but never falls asleep involuntarily or while driving. He does not have loss of muscle tone with strong emotion. He does not have daytime difficulties due to excessive sleepiness. He does not feel paralyzed on waking or falling asleep. He does not have vivid dreamlike scenes upon awakening or falling asleep. He does not feel afraid to go to sleep. He does not have nightmares. He rarely remembers his dreams. He constantly has racing thoughts. He rarely feels sad or depressed. He rarely has anxiety. He does not have muscular tension. He does not notice parts of his body jerking. He does not kick at night nor does he have crawling or aching feelings in his legs. He does not have any kind of leg pain during the night. He does not have morning jaw pain. He does not grind his teeth during sleep. He is not bothered by pain during the day nor is he awakened by pain during the night. He does not wake up feeling stiff in the morning. He does not wake up with sore achy muscles or pain in his neck and spine. Normal bedtime is between 11:00 p.m. and 11:30 p.m., sometimes falling asleep instantly but other times it he may require 30 minutes to fall asleep. He wakes up numerous times at night, so many times he can not count from. He is not sure how long he stays awake when he awakens at night but in general he is able to get back to sleep. His normal wake time is between 7:00 a.m.. 7:30 a.m.. He keeps the same schedule on weekends. He estimates getting between 6 and 7 hours of sleep at night. He takes naps in the afternoon or evening. A 10-15 minute nap may be refreshing. Habits: Former smoker He does consume caffeine. No alcohol or recreational substances. [facility] Past Medical History Medical History Coronary arteries, normal Blood clots in biliary tract following procedure Hepatitis C antibody test negative (01/21/17) Percutaneous transluminal coronary angioplasty bleed (~03/04/05) Abnormal colonoscopy (~07/13/07) Normal colonoscopy (~06/04/16) Inguinal hernia Myocardial infarction (~03/04/05) Surgical History Surgical History History of hernia repair (~05/05/10) Family History Family History Father Hypertension Family history of elevated blood lipids Family history of coronary artery disease Sibling Family history of malignant neoplasm Diabetes mellitus Grandparent Family history of coronary artery disease Social History Social History Years smoked: 40 Smoking status: Former smoker Tobacco type: cigarettes Second hand tobacco smoke exposure: No Smoking end date: 06/08/23 Alcohol intake: never Substance use: never Substance use type: does not use Do You Feel Safe in your Home?: Yes Lack of Transportation: No Lack of Food: Never True Current Housing: I Have Housing Concerned About Future Housing: No Difficulty Paying Gas/Electric Bills: No Difficulty Paying for Meds: No Currently Unemployed: No Education: Trade/Vocational Certificate Difficulty w/ Childcare or Family Care: No Living arrangements: with family Occupation/Education: retired Gender identity (if verbalized by the patient): Male Sexual Orientation (if Verbalized by the Patient): Straight or Heterosexual Agree to blood products: Yes Medications Home Medications ?Medication ?Instructions ?Recorded ?Confirmed ?Type aspirin 81 mg tablet,delayed 81 mg PO DAILY 02/16/19 04/26/24 History release albuterol sulfate 90 mcg/actuation 2 inh inhalation Q4H PRN shortness 10/26/22 04/26/24 Rx aerosol inhaler of breath or wheezing #25.5 grams atorvastatin 80 mg tablet 80 mg PO DAILY 11/15/22 04/26/24 History losartan 25 mg tablet 50 mg PO DAILY 03/17/23 04/26/24 History budesonide-formoterol HFA 160 2 inh inhalation BID 90 days #30.6 12/01/23 04/26/24 Rx mcg-4.5 mcg/actuation aerosol grams inhaler (Symbicort) nystatin 100,000 unit/gram topical 1 applic topical BID #30 grams 04/02/24 04/26/24 Rx cream nystatin 100,000 unit/gram topical 1 applic topical BID #60 grams 04/02/24 04/26/24 Rx powder amoxicillin 875 mg-potassium 1 tablet PO BID #20 tabs 04/26/24 04/26/24 Rx clavulanate 125 mg tablet methylprednisolone 4 mg tablets in See Rx Instructions PO PER PKG DIR 04/26/24 04/26/24 Rx a dose pack #21 ea pantoprazole 40 mg tablet,delayed 40 mg PO QAM 90 days #90 tabs 04/26/24 04/26/24 Rx release metoprolol succinate 100 mg See Rx Instructions .Route 05/03/24 Rx tablet,extended release 24 hr .COMPLEX #90 tabs Sleep Procedure A full night polysomnogram using the [employer] multi-channel system recorded the standard physiologic parameters including EEG, EOG, submentalis EMG, anterior tibialis EMG, EKG, body position, nasal and oral airflow using nasal pressure sensor and thermistor. Respiratory parameters of chest and abdominal movements were recorded with Respiratory Inductance Plethysmography belts. Oxygen saturation was recorded by pulse oximetry. Video monitoring was also performed. Sleep stages, periodic limb movements, and EEG arousals were scored in 30 second epochs according to the criteria of the AASM Scoring Manual. The Apnea-Hypopnea Index was calculated using CMS guidelines for definition of hypopnea with 4% O2 desaturations while scoring respiratory events. He did not meet criteria for a split night study, so this was conducted as a basic nocturnal polysomnogram. Sleep Architecture The total recording time was 489.8 minutes. The total sleep time was 362.0 minutes. Sleep latency was 7.5 minutes. REM latency was 66.0 minutes. Sleep efficiency was 73.9%. The patient had 29 awakenings for an awakening index of 4.8. Wake after sleep onset time was 120.0 minutes. The patient spent 40.0 minutes, 11.0% of total sleep time in Stage N1. The patient spent 211.0 minutes, 58.3% in Stage N2. The patient spent 49.0 minutes, 13.5% in Stage N3. The patient spent 62.0 minutes, 17.1% in Stage REM sleep. Respiratory Analysis The patient had 2 hypopneas, 2 obstructive apneas, no mixed apneas, and no central apneas for an overall Apnea Hypopnea Index of 0.7. The REM Apnea Hypopnea Index was 1.9. The NREM Apnea Hypopnea Index was 0.6. The patient had a Central Apnea Hypopnea Index of 0. There were no Respiratory Effort Related Arousals. The Respiratory Disturbance Index is 1.3 events per hour. There was no evidence of Christo-Lainez Respirations. Arousals There were 119 total arousals for an arousal index of 19.7. There were 74 spontaneous arousals for an index of 12.3. There were 24 arousals due to respiratory events for an index of 4.0. There were 6 arousals due to periodic limb movements for an index of 1.0. There were 16 arousals due to isolated limb movements for an index of 2.7. Periodic Limb Movements The patient had 33 isolated limb movements with an index of 5.5. The patient had 36 periodic limb movements with an index of 6.0. Patient had a total of 69 limb movements with a total limb movement index of 11.4. Oximetry Data The patient had an average oxygen saturation of 92.0% in sleep with a minimum oxygen saturation of 88% and a maximum oxygen saturation of 97%. The patient had 3 oxygen desaturations that were 4% or greater resulting in an Oxygen Desaturation Index of 0.5. The patient spent 1.8 minutes, 0.4% of total sleep time with an oxygen saturation below 88%. Snoring Profile Snoring was mild and intermittent. Cardiac Profile The patient had normal sinus rhythm, average pulse awake is 69, minimum pulse awake is 60 and maximum pulse awake is 90. During sleep the average pulse is 65 beats per minute, the minimum pulse is 58 beats per minute and the maximum pulse is 80 beats per minute. Occasional PVC. No arrhythmia. EEG Profile Unremarkable, no evidence of seizures. Assessment and Plan Assessment and Plan (1) Non-restorative sleep: Code(s): G47.8 - Other sleep disorders Status: Acute Assessment and Plan: This basic nocturnal polysomnogram on 05/03/2024 shows a normal apnea-hypopnea index of 0.7 using 4% criteria, minimum saturation 88% with mild intermittent snoring. Patient was not able to sleep on his back for much of the night, and he told the tech that he normally does not sleep on his back at home. Although he spent little time on his back during this study, his events were much more severe. His sleep was also fragmented with frequent awakenings. He had frequent shifts between wake, stage I, stage II, and stage 3 sleep. He did not have significant leg movements during this study. His sleep architecture was normal. I recommend the patient have evaluation for upper airway causes for snoring. He may have rhinitis, allergic or non-allergic, and treatment may reduce snoring. He may benefit from using nasal adhesive Breathe Right strips to prevent snoring. Good sleep hygiene is recommended including enough time to achieve 7-9 hours of sleep most nights. Data The data obtained during this sleep study is adequate for interpretation. Certification This sleep study has been reviewed by a board certified sleep medicine physician.
[2024-06-01 17:55] VITALS: BMI 25.7
== END 2024-05-04 06:43 | disposition home or self-care (01) ==
LOC: ANHCSM 08:30
PROVIDERS: PCP Family Medicine; Visit Provider Nurse Practitioner
DX: G47.8 Other sleep disorders (principal)
CPT/HCPCS: 95810

== ENCOUNTER 2024-06-29 08:06 | Outpatient (CLI) | payer MEDICARE, SELFPAY ==
--- NOTE | ~2024-06-29 | CT_ITS ---
EXAMINATION: CT lung screening DATE: 06/29/2024 08:21 INDICATION: Personal history of nicotine dependence TECHNIQUE: Computed tomography (CT) of the chest was performed without intravenous contrast. The dose -length product was 145.60 mGy-cm. Automated exposure control and iterative reconstruction technique were employed. COMPARISON: CT dated 06/15/2023 FINDINGS: Heart size normal. No significant pleural or pericardial effusion. There are calcified gran ulomas of the spleen. Small hiatal hernia. There is atherosclerosis of the aorta and coronary arterie s. There is apical pleural thickening/scarring. There is chronic scarring peripherally in the right l ower lobe. There are calcified mediastinal lymph nodes and lung nodules, consistent with chronic gran ulomatous disease. There are a few punctate 1-2 mm nodules in the lung apices, most likely benign. No endobronchial lesions. No focal airspace consolidation. No pneumothorax. There is moderate thoracic spondylosis. IMPRESSION: 1. Lung-RADS category 2: Benign appearance or behavior. Continue annual screening with noncontrast lo w-dose chest CT in 12 months. Reviewed, dictated and finalized at location A. IMPRESSION: 1. Lung-RADS category 2: Benign appearance or behavior. Continue annual screeni ng with noncontrast low-dose chest CT in 12 months.
--- OUTSIDE RECORDS SUMMARY | 2024-06-29 08:13 | XMS_ITS | Clinical Summary ---
Author Organization [facility] Address [address] [place] [address] Care Team Providers Care Nut Threader Name Role Phone Mauri Tripp MD Primary Care Provider [phone] Source Comments [facility],non-owned Affiliates and Associated Physician Practices is amultiple site organization consisting of ambulatory clinics and hospital sitesin [place], [place], [place] and [place]. This disclosure is being madepursuant to the Care Everywhere program and may not contain all information available regarding this patient. Last updated 17.[facility] Allergies No known active allergies Medications * Be aware that medications may not be up to date on this document. Alwaysverify current medications with the patient. Medication Sig Dispensed Refills Start Date End Date Status lovastatin (MEVACOR) 20 MG tablet Take 20 mg by mouth at bedtime 12/01/2017 Active fluticasone propionate (FLONASE) 50 MCG/ACT nasal spray [place] 1 spray into each nostril once daily [...] 68 01/06/2018 8:40 AM CDT Temperature 36.7 C (98.1 F) 01/03/2018 1:00 PM CDT Respiratory Rate 16 01/03/2018 1:30 PM CDT [...] to complete this topic MENINGOCOCCAL (Group B) VACC INE SHARED DECISION-MAKING Aged Out No longer eligibl e based on patient's age to complete this topic MENINGOCOCCAL GROUPS A/C/Y/W VACCINE Aged Out No longer eligible b ased [...] 7 - 26 mg/dL 01/03/2018 8:20 AM [facility] Creatinine 1.2 0.6 - 1.2 mg/dL 01/03/2018 8:20 AM [facility] Sodium 140 136 - 145 mmol/L 01/03/2018 8:20 AM [facility] Potassium 4.1 3.5 - 4.5 mmol/L 01/03/2018 8:20 AM [facility] Chloride 106 98 - 107 mmol/L 01/03/2018 8:20 AM [facility] CO2 24 22 - 29 mmol/L 01/03/2018 8:20 AM [facility] Glucose 94 70 - 115 mg/dL 01/03/2018 8:20 AM [facility] Calcium 9.5 8.4 - 10.2 mg/dL 01/03/2018 8:20 AM [facility] Anion Gap 14 8 - 18 01/03/2018 8:20 AM [facility] BUN/Creatinine Ratio 7 7 - 23 01/03/2018 8:20 AM [facility] Osmolality Calculated 288 270 - 300 mOsm/kg 01/03/2018 8:20 AM [facility] eGFR >60 >60 mL/min/1.7 3 m2 01/03/2018 8:20 AM [facility] Blood BLOOD SPECIMEN / Unknown Venipuncture / Unknown 01/03/2018 7:42 AM CDT 01/03/2018 8:00 AM CDT Russell Gleason DO LAB - [place] [address], [facility] [phone] from Last 3 Months or Most Recently Relevant to Health Maintenance Advance Directives * Full Code (Latest Code Status on File) Date Activated Date Inactivated Comments 01/03/2018 7:14 AM 01/03/2018 3:00 PM Care Teams Nut Threader Relationship Specialty Start Date End Date Mauri Tripp MD [address] [place] [id number] PCP - General Family Medicine 11/11/16
--- OUTSIDE RECORDS SUMMARY | 2024-06-29 08:13 | XMS_ITS | CONTINUITY OF CARE DOCUMENT ---
Author Name antonella berman Address Unknown Organization [facility] Address [address] [place] [address] Phone [phone] Care Team Providers Care Ore Dryer Name Role Phone Jackie HICKEY, Wan Unavailable VERNACE DO, CARRI Unavailable VERNACE DO, CARRI Unavailable PROBLEMS Condition Status Date Provider Notes TOBACCO ABUSE-quit active Wan Mejia MD Hyperlipidemia, unspecified active Tracy owens RN HTN-02/10 ECHO EF 60 05/11 EC HO EF 50-55 completed - Wan Mejia MD Family History of Hypertension: active ? Shandra Mejia MD Abnormal nuclear stress test active Wan tinajero MD Chest pain active Wan Mejia MD C O P D active Wan Mejia MD Cardiology examination active Serena donahue BAND PRESSER ENCOUNTERS Date Type Provider Location Encounter Diag nosis - In-person encounter Office Visit Wan Mejia MD [facility] Cardiology examination - In-person encounter Office Visit Wan Mejia MD [facility] C O P D - In-person encounter Office Visit Wan Mejia MD [facility] - In-person encounter Office Visit Wan Mejia MD [facility] - In-person encounter Office Visit Wan Mejia MD [facility] - In-person encounter Office Visit Wan Mejia MD [facility] - In-person encounter Office Visit Wan Mejia MD [facility] Chest pain - In-person encounter Office Visit Wan Mejia MD [facility] - In-person encounter Office Visit Wan Mejia MD [facility] - In-person encounter Office Visit Wan Mejia MD [facility] Abnormal nuclear stress test - In-person encounter Office Visit Wan Mejia MD [facility] - In-person encounter Office Visit Wan Mejia MD [facility] TOBACCO ABUSE-quit - In-person encounter Office Visit Wan Mejia MD [facility] Family History of Hypertension: - In-person encounter Office Visit Wan Mejia MD [facility] - In-person encounter Office Visit Wan Mejia MD [facility] - In-person encounter Office Visit Wan Mejia MD [facility] - In-person encounter Office Visit Wan Mejia MD [facility] - In-person encounter Office Visit Wan Mejia MD [facility] - In-person encounter Office Visit Wan Mejia MD [facility] Hyperlipidemia, unspecifiedHTN-02/10 ECHO EF 60 / ECHO EF 50-55 - In-person encounter Office Visit Wan Mejia MD [facility] VITAL SIGNS Date Observation Value Provider [...] Chastit y Russell height E&M 73 [in_i] [facility] Body Mass Index (Ratio) 30.08 [...] blood pressure, cuff size large Ke rri Elgiio blood pressure, diastolic 90 mm[Hg] Ke rri Eligio blood pressure, systolic 142 mm[Hg] Faibana Del Valle oxygen saturation, oximetry 98 % Malika Del Valle respiratory rate E&M 20 /min Malika Anshul dardennfeldwilson pulse rate 90 /min Malika Gonzalez formerly named [facility] weight E&M 216 [lb_av] Malika Imane er height E&M 73 [in_i] Malika Roth formerly named [facility] Body Mass Index (Ratio) 28.63 kg/m2 Shandra Mejia MD blood pressure, cuff size regular [facility] blood pressure, diastolic 90 mm[Hg] Ke rri [facility] blood pressure, systolic 130 mm[Hg] Fabiana ri I[facility]central [facility] oxygen saturation, oximetry 97 % Malika Valeriobeth respiratory rate E&M 18 /min Malika Landers clarisselachellebeth pulse rate 60 /min Malika Roth formerly named [facility] weight E&M 217 [lb_av] Malika Roth formerly named [facility] height E&M 73 [in_i] Malika Roth formerly named [facility] blood pressure, diastolic 80 mm[Hg] Verito Todd blood pressure, systolic 140 mm[Hg] Cynthia Todd pulse rate 70 /min Sami malik oxygen saturation, oximetry 98 % Sami Todd [...] 98 % Valatrjodie Dominguez respiratory rate E&M 17 /min Aneatri vicky Dominguez weight E&M 187 [lb_av] Aneatris Alberto Body Mass Index (Ratio) 26.52 kg/m2 Vala lizabeth Dominguez blood pressure, diastolic 80 mm[Hg] An soy Dominguez blood pressure, systolic 131 mm[Hg] Ane atrivicky Dominguez pulse rate 63 /min Aneatris Alberto oxygen saturation, oximetry 98 % Valatrjodie Dominguez respiratory rate E&M 16 /min Aneatri s [facility] weight E&M 201 [lb_av] Valatrjodie [facility] Body Mass Index (Ratio) 26.38 [...] RN oxygen saturation, oximetry 97 % Francisco Castro RN respiratory rate E&M 18 /min Francisco [...] LinkLogic 0-149 cholesterol, serum 134 mg/dL [employer] 105-290 3958/07/ 31 prothrombin time (patient) 10.7 s [employer] 9.1-12.0 international normalized ratio (INR) 1.0 [employer] 0.8-1.2 calcium, serum 9.4 mg/dL [employer] 8.6-10.2 carbon dioxide, venous blood 27 mmol/L [employer] 20-29 chloride, serum 102 mmol/L [employer] 96-106 potassium, serum 4.8 mmol/L [employer] 3.5-5.2 sodium, serum 142 mmol/L [employer] 665-883 8170/07/ 31 urea nitrogen/creatinine ratio, serum 8 LinkLogic [...] Not Estab. platelet count 177 X10E3/UL [employer]Logic 151-579 3208/07/ 31 red blood cell distribution width 13.4 [...] 3.4-10.8 alanine aminotransferase (SGPT), serum 13 1/L [facility] aspartate aminotransferase (SGOT), serum 12 1/L [facility] calcium, serum 9.0 mg/dL [facility] blood glucose, fasting 89 mg/dL [facility] creatinine, serum 1.06 mg/dL [facility] urea nitrogen, blood 8 mg/dL [facility] carbon dioxide, serum, total 28 mmol/L [facility] chloride, serum 102 mmol/L [facility] potassium, serum 4.0 mmol/L [facility] sodium, serum 140 mmol/L [facility] cholesterol/HDL ratio, serum 3.2 David Carvalho triglyceride, [...] TABLET completed ONE TAB. DAILY - Wan Mjeia MD TOPROL XL 50 MG ORAL TABLET EXTENDED RELEASE 24 HOUR completed OD - Maura Vargas SOCIAL HISTORY Date Observation Value Provider personal history of [facility] drug use [facility] alcohol use no Serena Ventimig charity [facility] passive cigarette sm eliz exposure no Serena Ventimiglia [facility] smoking, year quit 2013 Serena Ve ntimiglia [facility] smoking, date started 1973 [facility] smoking history, tot al pack/year 40 Serena Ventimiglia [facility] smoking history, tot al pack/day 1/4 Serena Ventimiglia [facility] cigarette use yes [facility] smoking status Current every da y smoker Serenaalicia So [facility] drug use no Wan Mejia MD alcohol [...] revi ewed - no changes required Wan Meija MD social history E&M Marital Statu s: [...] exercise, frequency, days per week yes [facility] use, averag e drinks per day yes [facility] sm eliz exposure no [facility] smoking, year quit 2013 [facility], date started [facility] smoking history, tot al pack/year 40 [facility] smoking [facility], tot al pack/day 1/4 [facility] cigarette use yes [facility] social history E&M Marital Statu s: [...] fuentes RN social history reviewed E&M reviewed rFancisco Castro RN smoking status smoker - current [...] Management Plan continue current therapy Serena So BAND PRESSER HRA, CV Assess/Plan, Angina (inactive) Management Plan [...] Payer name Policy type / Coverage type [place] [employer] GRP MEDICARE ADVANTAGE PLAN (PPO) Medicare [id number] ADVANCE DIRECTIVES Name Date DISCUSSED - NO DECISION MADE TREATMENT PLAN Date Name Performer [id number],S,W ill INCREASE atorvastatin to 80mg once daily [...] mouth everyday at bedtime Wan Mejia MD [id number],S,W ill START losartan 25mg once daily BP [...] mouth once a day Wan Mejia MD [id number],S,N o chest pain. Stable. Continue medical therapy. [...] mouth once a day Wan Mejia MD [id number],S,WIll check an echo Wan Mejia MD [id number],B, Wan Mejia MD [id number],C,H is BP at home is usually within [...] MD Cardiology:continued cessation e ncouraged Serenaalicia So [facility] Cardiology:will get updated lipid panel from PCP H is updated medication list for this problem includes: Atorvastatin 80 Mg Tablet (Atorvastatin) ..... Take 1 tablet by mouth once a day due for follow up Serena So [facility] Cardiology:BP 122/78 C ontinue present medication regimen [...] by mouth once a day Serena So [facility] Cardiology:No new sy mptoms and overall active [...] Cardiology:Appears s table. Continue medical management Wan Meija MD Cardiology Follow up : B P [...] 02/2014 Wan Mejia MD Cardiology:BP 118/60 Wan ddoson MD Cardiology:s/p stent to LAD (03/11/2005) in setting of non Q-wave ID Wan Mejia MD Follow up :The Patie [...] Cl: 102 (01/27/2009) O rders: E KG (CPT-[id number]) Wan Mejia MD routine:The Patient was reencouraged [...] ..... One tab. daily Orders: E KG ([id number]) Carotid Duplex Scan: n ormal: (05/25/2005) Echocardiogram: [...] Cl: 102 (01/27/2009) O rders: E KG (CPT-[id number]) Wan Mejia MD high b/p: H is [...] T OBACCO USE CESSATION INTERMEDIATE 3-10 MINUTES (CPT-[id number]) Wan Mejia MD test results: H is [...] O rders: S tress Test - Nuclear ([id number]) Wan Mejia MD :The Patient was reencouraged [...] Images Callie Grullon MD compl eted SNOMED-CT: 26505004 Physical Exam, Performed: Pulse Exam of Foot Wan Mejia MD completed EKG Wan Mejia MD completed SNOMED-CT: 176737646 560426 Current Medications Documented Wan Mejia MD completed EKG Wan Mejia MD completed SNOMED-CT: 796865515 379098 Current Medications Documented Wan Mejia MD completed EKG Wan Mejia MD completed EKG Henri Henley MD complete d EKG Wan Mejia MD completed EKG Wan Mejia MD completed EKG Wan Mejia MD completed EKG Francisco Castro RN completed
--- OUTSIDE RECORDS SUMMARY | 2024-06-29 08:13 | XMS_ITS | Continuity of Care Document ---
Author Organization [facility] Address [address] [place] [address] [place] [address] Phone Care Team Providers Care Magazine Feeder Name Role Phone Pat Corrales Unavailable Unavailable Advance Directives Directive Yes / No Effective Date File Name No Information Encounters Encounter Description Practice Location Reason(s) For Visit Diagnoses Date Provider Providers Copied on Encounter [facility], [address] [place] [address] [address], [place], [place], [id number], [place] tel:[phone] [address] [facility] [place] No Information Diogo-0 5-[address] Savanna Stewart. [address] , [address], [place], [address], [place]. tel:[phone] Family History Family Member Type Diagnosis Age At Onset No Information Payers Payer name Insurance type Covered constitution party ID Authoriza tion(s) No Information Social History [...]
--- OUTSIDE RECORDS SUMMARY | 2024-06-29 08:13 | XMS_ITS | Clinical Summary ---
Author Organization [facility] Address [address] [place] [address] Phone Care Team Providers Care Travel Registered Nurse Icu Name Role Phone Mauri Tripp MD Primary Care Provider [phone] Allergies No known active allergies Medications metoprolol [...] 58 12/19/2017 12:19 PM CDT Temperature 36 C (96.8 F) 12/19/2017 12:19 PM CDT Respiratory Rate 18 [...] 2006 Zoster Immunization (1 of 2) 2006 Respiratory Syncytial Virus (RSV) Immunization (Adult) (1 [...] patient's age to complete this topic Insurance [address] Care Teams Travel Registered Nurse Icu Relationship Specialty Start Date End Date Mauri Tripp MD [address] [place] [address] PCP - General Family Medicine 08/25/16
== END 2024-06-29 08:07 | disposition home or self-care (01) ==
PROVIDERS: PCP Family Medicine; Visit Provider Physician Assistant
DX: Z12.2 Encounter for screening for malignant neoplasm of respiratory organs (principal); Z87.891 Personal history of nicotine dependence
CPT/HCPCS: 71271